=== PATIENT | male | born 1940 | race Caucasian/White ===

== ENCOUNTER 2020-01-03 14:54 | Inpatient (IN) | payer MEDICARE ==
--- NOTE | 2020-01-03 15:48 | CR ---
Abdomen 2V AP Flat Upright CLINICAL HISTORY: Abdominal pain FINDINGS: No free air is seen. There is moderate diffuse small bowel distention with scattered air-fluid levels. There is some gas and feces in the colon. Patient has had previous left abdominal surgery. IMPRESSION: Significant small bowel distention with moderate colonic distention. This could represent ileus but early or partial small bowel obstruction is not excluded
[2020-01-03] MEDS ORDERED: Ondansetron 4 MG/2 ML SDV IV PRN (16:03)
[2020-01-03] MEDS ORDERED: diphenhydrAMINE 50 MG/ML SDV IVPUSH PRN (16:17)
[2020-01-03] MEDS ORDERED: diphenhydrAMINE 25 MG Cap PO PRN (16:17)
[2020-01-03] MEDS ORDERED: Naloxone 0.4 MG/ML SDV IVPUSH PRN (16:17)
[2020-01-03] MEDS ORDERED: Sodium Chloride 0.9% 10 ML Syringe FLUSH PRN (16:21)
[2020-01-03] MEDS ORDERED: Iopamidol 612 MG/ML 100 ML Bottle IV SCH (16:30)
[2020-01-03] MEDS ORDERED: HYDROmorphone/Normal Saline 15 MG/30 ML PCA IV PRN (16:30)
[2020-01-03] MEDS ORDERED: Sodium Chloride 0.9% 80 ML IV SCH (16:30)
--- NOTE | 2020-01-03 16:52 | PCM.HP.2 ---
H&P History of Present Illness - General Date of Service: 01/03/20 Admit Problem/Dx: Admission Diagnosis/Problem Admission Diagnosis/Problem Ileus Source of Information: Patient History Limitations: Reports: No Limitations - History of Present Illness Initial Comments - Free Text/Narative: Uche is an 80-year-old male who began having bowel yesterday after he had eaten [place] food. The pain is 10/10 and cramping in nature and he is nauseated. He does have a history of partial bowel resection in the past and has had significant diarrhea ever since. His stool is normal color without blood. He is unable to eat at the present time. Duration of Symptoms: Reports: Colic, Constant, Getting Worse Severity: Severe Improves with: Reports: None - Related Data Allergies/Adverse Reactions: Allergies Allergy/AdvReac Type Severity Reaction Status Date / Time No Known Allergies Allergy Verified 06/27/16 07:57 Home Medications: Home Meds Triamcinolone Acetonide [Kenalog 0.1% Oint] 0 gm TOP ASDIRECTED 09/07/13 [History] Calcium Carbonate [Tums] 1 tab.chew PO ASDIRECTED PRN 06/27/16 [History] Acetaminophen/oxyCODONE [Percocet 325-5 MG] 1 - 2 tab PO Q4H PRN #50 tablet 07/02/16 [Rx] Ibuprofen [IJD: Ibuprofen] 600 mg PO QID #40 tablet 07/02/16 [Rx] Pantoprazole [ProTONIX] 40 mg PO BEDTIME #30 tab.cr 07/02/16 [Rx] Tamsulosin [Flomax] 0.4 mg PO BEDTIME #30 cap.er 07/02/16 [Rx] Past Medical History HEENT History: Reports: Impaired Vision Gastrointestinal History: Reports: GERD, Other (See Below) Other Gastrointestinal History: frequent bms Genitourinary History: Reports: Prostate Disorder, Other (See Below) Other Genitourinary History: prostate ca Oncologic (Cancer) History: Reports: Prostate Dermatologic History: Reports: Other (See Below) Other Dermatologic History: skin grafts bilat arms and right shoulder. - Infectious Disease History Infectious Disease History: Reports: Chicken Pox, Measles, Mumps - Past Surgical History GI Surgical History: Reports: Colonoscopy, Hernia, Inguinal Male Surgical History: Reports: Other (See Below) Dermatological Surgical History: Reports: Skin Graft Social & Family History - Caffeine Use Caffeine Use: Reports: Soda H&P Review of Systems - Review of Systems: Review Of Systems: See Below General: Reports: Weakness HEENT: Reports: No Symptoms Pulmonary: Reports: No Symptoms Cardiovascular: Reports: No Symptoms Gastrointestinal: Reports: Abdominal Pain, Decreased Appetite, Nausea, Vomiting Genitourinary: Reports: No Symptoms Musculoskeletal: Reports: No Symptoms Skin: Reports: No Symptoms Psychiatric: Reports: No Symptoms Neurological: Reports: Weakness Hematologic/Lymphatic: Reports: No Symptoms Immunologic: Reports: No Symptoms Exam - Exam Exam: See Below - Exam General: Alert, Oriented, Moderate Distress HEENT: PERRLA, Hearing Intact, Mucosa Moist & [place], Nares Patent, Normal Nasal Septum, Posterior Pharynx Clear, Conjunctiva Clear, EOMI, EACs Clear, TMs Clear Neck: Supple, Trachea Midline, 2 Lungs: Clear to Auscultation, Normal Respiratory Effort Cardiovascular: Regular Rate, Regular Rhythm GI/Abdominal Exam: Guarding, Tender, Abnormal Bowel Sounds Back Exam: Normal Inspection Extremities: Normal Inspection, No Pedal Edema Peripheral Pulses: 1+: Carotid (L), Carotid (R), Radial (L), Radial (R) Skin: Warm, Dry, Intact Neurological: Cranial Nerves Intact, Reflexes Equal Bilateral Neuro Extensive - Mental Status: Alert, Oriented x3, Normal Cognition Neuro Extensive - Motor, Sensory, Reflexes: CN II-XII Intact, Abnormal Gait DTR: 1+: Bicep (L), Bicep (R) Psychiatric: Alert - Patient Data Lab Results Last 24 hrs: Laboratory Results - last 24 hr 01/03/20 Range/Units 14:59 WBC 12.1 H (4.5-11.0) K/uL RBC 4.73 (4.30-5.90) M/uL Hgb 14.9 D (12.0-15.0) g/dL Hct 43.9 (40.0-54.0) % MCV 93 (80-98) fL MCH 32 H (27-31) pg MCHC 34 (32-36) % Plt Count 320 (150-400) K/uL Neut % (Auto) 88 H (36-66) % Lymph % (Auto) 7 L (24-44) % [place] % (Auto) 5 (2-6) % Eos % (Auto) 0 L (2-4) % Baso % (Auto) 0 (0-1) % Result Diagrams: 01/03/20 14:59 Sepsis Event Note - Focused Exam Date Exam was Performed: 01/03/20 Time Exam was Performed: 16:47 Problem List Initiated/Reviewed/Updated: Yes Orders Last 24hrs: Active Orders 24 hr Category Date Time Status Patient Status [ADT] Routine ADT 01/03/20 16:03 Active Ambulate [RC] QID Care 01/03/20 16:03 Active Communication Order [RC] Per Unit Routine Care 01/03/20 16:19 Active Height and Weight [RC] UPON Care 01/03/20 16:03 Active Intake and Output [RC] QSHIFT Care 01/03/20 16:07 Active Notify Provider Consults [RC] ASDIRECTED Care 01/03/20 16:14 Active Oxygen Therapy [RC] PRN Care 01/03/20 16:03 Active ASSOCIATE PROFESSOR OF BIOSTATISTICS Record [RC] Q4H Care 01/03/20 16:19 Active Peripheral IV Care [RC] . DIRECTED Care 01/03/20 16:14 Active Up ad Laura [RC] ASDIRECTED Care 01/03/20 16:03 Active Up to Chair [RC] QID Care 01/03/20 16:03 Active VTE/DVT Education [RC] Per Unit Routine Care 01/03/20 16:03 Active Vital Signs [RC] PER UNIT ROUTINE Care 01/03/20 16:19 Active Vital Signs [RC] Q4H Care 01/03/20 16:03 Active Consult to Physician [CONS] Routine Cons 01/03/20 16:03 Ordered Nothing per Oral Now Diet [DIET] Diet 01/03/20 Dinner Active Abdomen Pelvis w Cont [CT] Routine Exams 01/03/20 15:47 Ordered Chest 2V [CR] Routine Exams 01/03/20 16:22 Ordered CBC WITH AUTO DIFF [HEME] DAILY Lab 01/04/20 05:00 Ordered CBC WITH AUTO DIFF [HEME] DAILY Lab 01/05/20 05:00 Ordered CBC WITH AUTO DIFF [HEME] DAILY Lab 01/06/20 05:00 Ordered CBC WITH AUTO DIFF [HEME] DAILY Lab 01/07/20 05:00 Ordered CBC WITH AUTO DIFF [HEME] DAILY Lab 01/08/20 05:00 Ordered CBC WITH AUTO DIFF [HEME] DAILY Lab 01/09/20 05:00 Ordered COMPREHENSIVE METABOLIC PN,CMP [CHEM] DAILY Lab 01/04/20 05:00 Ordered COMPREHENSIVE METABOLIC PN,CMP [CHEM] DAILY Lab 01/05/20 05:00 Ordered COMPREHENSIVE METABOLIC PN,CMP [CHEM] DAILY Lab 01/06/20 05:00 Ordered COMPREHENSIVE METABOLIC PN,CMP [CHEM] DAILY Lab 01/07/20 05:00 Ordered COMPREHENSIVE METABOLIC PN,CMP [CHEM] DAILY Lab 01/08/20 05:00 Ordered COMPREHENSIVE METABOLIC PN,CMP [CHEM] DAILY Lab 01/09/20 05:00 Ordered COMPREHENSIVE METABOLIC PN,CMP [CHEM] Routine Lab 01/03/20 14:59 Received CULTURE STOOL + SHIGATOX [RM] Routine Lab 01/03/20 14:59 Received Dextrose 5%-0.9% NaCl [Dextrose 5%-Normal Saline] 1,000 Med 01/03/20 16:45 Active ml IV ASDIRECTED HYDROmorphone/Normal Saline [Dilaudid ASSOCIATE PROFESSOR OF BIOSTATISTICS 15 MG in NS Med 01/03/20 16:30 Active 30 ML] 0 mg IV ASDIRECTED PRN Naloxone [Narcan] Med 01/03/20 16:17 Active 0.1 mg IVPUSH Q3M PRN Ondansetron [Zofran] Med 01/03/20 16:03 Active 4 mg IV Q4H PRN Sodium Chloride 0.9% [Saline Flush] Med 01/03/20 16:03 Active 10 ml FLUSH ASDIRECTED PRN diphenhydrAMINE [Benadryl] Med 01/03/20 16:17 Active 25 mg IVPUSH Q6H PRN diphenhydrAMINE [Benadryl] Med 01/03/20 16:17 Active 25 mg PO Q6H PRN Nasogastric Orogastric Tube Insertion [OM.PC] Urgent Oth 01/03/20 16:08 Ordered Peripheral IV Insertion Adult [OM.PC] Routine Oth 01/03/20 16:03 Ordered Pulse Oximetry Continuous Monitoring [OM.PC] Routine Oth 01/03/20 16:19 Ordered Resuscitation Status Routine Resus Stat 01/03/20 16:03 Ordered Medication Orders Diphenhydramine HCl (Benadryl) 25 mg IVPUSH Q6H PRN PRN Reason: Itching Diphenhydramine HCl (Benadryl) 25 mg PO Q6H PRN PRN Reason: Itching Hydromorphone HCl (Dilaudid Carbide Tool Die Maker 15 Mg In Ns 30 Ml) 0 mg IV ASDIRECTED PRN; Protocol PRN Reason: PAIN Dextrose/Sodium Chloride (Dextrose 5%-Normal Saline) 1,000 mls @ 125 mls/hr IV ASDIRECTED COLBY Naloxone HCl (Narcan) 0.1 mg IVPUSH Q3M PRN PRN Reason: Respiratory Depression Ondansetron HCl (Zofran) 4 mg IV Q4H PRN PRN Reason: Nausea/Vomiting Sodium Chloride (Saline Flush) 10 ml FLUSH ASDIRECTED PRN PRN Reason: Keep Vein Open Assessment/Plan Comment:: Assessment/Plan: #1. Small bowel obstruction. A flat plate of the abdomen showed air-fluid levels. CAT scan is pending. I recommend the hospital and will consult surgery. The white count is slightly elevated and CMP is pending. A chest x-ray is pending. #2. History of diarrhea: Cultures are pending to evaluate diarrhea. #3. Prostate cancer. Treatment followed by an oncologist - Mortality Measure Prognosis:: Good
[2020-01-03] MEDS: Sodium Chloride 0.9% 10 ML Syringe FLUSH PRN (16:58)
[2020-01-03] MEDS: Dextrose 5%-0.9% NaCl 1,000 ML IV SCH (17:18)
--- NOTE | 2020-01-03 17:40 | CRLCT ---
INDICATION: Abdominal pain TECHNIQUE: CT abdomen and pelvis acquired with 100 cc Isovue-300 IV contrast. COMPARISON: KUB from earlier today FINDINGS: Lower chest: Small hiatal hernia. Liver: Simple cyst in the liver. Spleen: Unremarkable. Pancreas: Unremarkable. Gallbladder and bile ducts: Unremarkable. Adrenal glands: Unremarkable. Kidneys: Hypodense lesion on the right kidney measuring 38 Hounsfield units in density. GI tract: Multiple fluid filled loops of dilated small bowel and colon. Transition point is seen in the mid abdomen on image 38 series 3. Vascular structures: Mild atherosclerotic disease. Lymph nodes: Unremarkable. Miscellaneous: Unremarkable. No free air or significant free fluid. Pelvic Organs: Unremarkable. Bones: Severe degenerative changes in the right hip joint. IMPRESSION: Bowel obstruction appears to involve both the small and large bowel with a transition point in the mid abdomen on image 38 series 3. No pneumatosis or extraluminal air. Indeterminate lesion on the right kidney. Recommend renal CT for further evaluation. Small hiatal hernia. 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 Please note that all CT scans at this facility use dose modulation, iterative reconstruction, and/or weight-based dosing when appropriate to reduce radiation dose to as low as reasonably achievable. Dictated by Minna Torres MD @ Jan 03 2020 5:29PM Signed by Dr. Minna Torres @ Jan 03 2020 5:38PM
[2020-01-04] MEDS: Dextrose 5%-0.9% NaCl 1,000 ML IV SCH ×3 (01:23→17:18)
--- NOTE | 2020-01-04 09:12 | CRLCR ---
INDICATION: Pain. COMPARISON: Abdominal radiograph and CT of the abdomen and pelvis 01/03/2020. TECHNIQUE: Two view abdomen. FINDINGS: Interval placement of an enteric tube with tip and side hole in the stomach. There are persistently dilated loops of bowel with air-fluid levels compatible with obstruction. Enteric contrast within loops of bowel in the pelvis. No free air on upright view. No pneumatosis. Surgical sutures in the left abdomen. Surgical greg in the pelvis. Degenerative changes of the spine, hips, and sacroiliac joints. The lung bases are clear. IMPRESSION: 1. Interval placement of an enteric tube with tip and side hole in the stomach. 2. Persistent dilation of bowel loops with air-fluid levels compatible with obstruction. Dictated by Shannan Khoury MD @ Jan 04 2020 9:05AM Signed by Dr. Shannan Khoury @ Jan 04 2020 9:10AM
[2020-01-04] MEDS ORDERED: Lidocaine 2% Jelly 10 ML Urojet MUCMEM ONE (12:40)
--- NOTE | 2020-01-04 19:26 | PCM.PN ---
- General Info Date of Service: 01/04/20 Subjective Update: Uche continues to have abd pain and passing no gas. Pain controlled by LIGHT FIXTURE SERVICER Dilaudid. Functional Status: Reports: Pain Controlled - Review of Systems General: Reports: Weakness HEENT: Reports: No Symptoms Pulmonary: Reports: No Symptoms Cardiovascular: Reports: No Symptoms Gastrointestinal: Reports: Abdominal Pain Genitourinary: Reports: No Symptoms Musculoskeletal: Reports: No Symptoms Skin: Reports: No Symptoms Neurological: Reports: No Symptoms Psychiatric: Reports: No Symptoms - Patient Data Vitals - Most Recent: Last Vital Signs Temp 96.7 F L 01/04/20 14:28 Pulse 50 L 01/04/20 14:28 Resp 18 01/04/20 14:28 BP 105/62 01/04/20 14:28 Pulse Ox 92 L 01/04/20 14:28 Weight - Most Recent: 135 lb 0.001 oz I&O - Last 24 Hours: Intake & Output 01/04/20 01/04/20 01/04/20 06:59 14:59 22:59 Intake Total 1600 1329 Output Total 200 250 570 Balance 1400 -250 759 Lab Results Last 24 Hours: Laboratory Results - last 24 hr 01/04/20 01/04/20 Range/Units 05:44 05:44 WBC 13.9 H (4.5-11.0) K/uL RBC 4.26 L (4.30-5.90) M/uL Hgb 13.4 (12.0-15.0) g/dL Hct 40.3 (40.0-54.0) % MCV 95 (80-98) fL MCH 32 H (27-31) pg MCHC 33 (32-36) % Plt Count 258 (150-400) K/uL Neut % (Auto) 86 H (36-66) % Lymph % (Auto) 6 L (24-44) % [place] % (Auto) 9 H (2-6) % Eos % (Auto) 0 L (2-4) % Baso % (Auto) 0 (0-1) % Sodium 140 (140-148) mmol/L Potassium 4.2 (3.6-5.2) mmol/L Chloride 106 (100-108) mmol/L Carbon Dioxide 26 (21-32) mmol/L Anion Gap 7.8 (5.0-14.0) mmol/L BUN 12 (7-18) mg/dL Creatinine 0.9 (0.8-1.3) mg/dL Est Cr Clr Drug Dosing 54.81 mL/min Estimated GFR (MDRD) > 60 (>60) Glucose 174 H (74-106) mg/dL Calcium 8.8 (8.5-10.1) mg/dL Total Bilirubin 0.5 (0.2-1.0) mg/dL AST 21 (15-37) U/L ALT 21 (12-78) U/L Alkaline Phosphatase 63 (46-116) U/L Total Protein 6.5 (6.4-8.2) g/dL Albumin 3.4 (3.4-5.0) g/dL Globulin 3.1 (2.3-3.5) g/dL Albumin/Globulin Ratio 1.1 L (1.2-2.2) Med Orders - Current: Current Medications Diphenhydramine HCl (Benadryl) 25 mg IVPUSH Q6H PRN PRN Reason: Itching Diphenhydramine HCl (Benadryl) 25 mg PO Q6H PRN PRN Reason: Itching Hydromorphone HCl (Dilaudid Central Supply Assistant 15 Mg In Ns 30 Ml) 0 mg IV ASDIRECTED PRN; Protocol PRN Reason: PAIN Last Admin: 01/03/20 17:32 Dose: 15 mg Documented by: Dextrose/Sodium Chloride (Dextrose 5%-Normal Saline) 1,000 mls @ 125 mls/hr IV ASDIRECTED COLBY Last Admin: 01/04/20 17:18 Dose: 125 mls/hr Documented by: Naloxone HCl (Narcan) 0.1 mg IVPUSH Q3M PRN PRN Reason: Respiratory Depression Ondansetron HCl (Zofran) 4 mg IV Q4H PRN PRN Reason: Nausea/Vomiting Sodium Chloride (Saline Flush) 10 ml FLUSH ASDIRECTED PRN PRN Reason: Keep Vein Open Last Admin: 01/03/20 16:58 Dose: 10 ml Documented by: Discontinued Medications Sodium Chloride (Normal Saline) 80 mls @ 3 mls/sec IV ASDIRECTED COLBY Stop: 01/03/20 16:31 Last Admin: 01/03/20 16:58 Dose: 3 mls/sec Documented by: Iopamidol (Isovue-300 (61%)) 100 ml IV . DIRECTED COLBY Stop: 01/03/20 16:31 Last Admin: 01/03/20 16:58 Dose: 100 ml Documented by: Lidocaine HCl (Xylocaine 2% Jelly) 10 ml MUCMEM ONETIME ONE Stop: 01/04/20 12:41 Last Admin: 01/04/20 13:15 Dose: 10 ml Documented by: - Exam General: Alert, Oriented HEENT: Pupils Equal, Pupils Reactive, EOMI, Mucous Membr. Moist/[place] Neck: Supple Lungs: Clear to Auscultation, Normal Respiratory Effort Cardiovascular: Regular Rate GI/Abdominal Exam: Guarding, Tender, Abnormal Bowel Sounds Back Exam: Normal Inspection, Full Range of Motion Extremities: Normal Inspection, Normal Range of Motion, Non-Tender, No Pedal Edema, Normal Capillary Refill Peripheral Pulses: 1+: Radial (L), Radial (R) Skin: Warm, Dry, Intact Neurological: No New Focal Deficit Sepsis Event Note - Evaluation Sepsis Screening Result: No Definite Risk - Focused Exam Vital Signs: Vital Signs Temp Pulse Resp BP Pulse Ox 01/04/20 14:28 96.7 F L 50 L 18 105/62 92 L 01/04/20 13:09 90 L 01/04/20 10:36 97.7 F 54 L 18 94/69 95 - Problem List Review Problem List Initiated/Reviewed/Updated: Yes - My Orders Last 24 Hours: My Active Orders 01/03/20 22:33 Sequential Compression Device [OM.PC] Routine 01/04/20 12:39 Urinary Catheter Assessment [RC] ASDIRECTED 01/04/20 12:45 Carr Catheter Insertion [Insert Urinary Catheter] [OM.PC] Q24H 01/05/20 05:00 CBC WITH AUTO DIFF [HEME] DAILY COMPREHENSIVE METABOLIC PN,CMP [CHEM] DAILY 01/06/20 05:00 CBC WITH AUTO DIFF [HEME] DAILY COMPREHENSIVE METABOLIC PN,CMP [CHEM] DAILY 01/07/20 05:00 CBC WITH AUTO DIFF [HEME] DAILY COMPREHENSIVE METABOLIC PN,CMP [CHEM] DAILY 01/08/20 05:00 CBC WITH AUTO DIFF [HEME] DAILY COMPREHENSIVE METABOLIC PN,CMP [CHEM] DAILY 01/09/20 05:00 CBC WITH AUTO DIFF [HEME] DAILY COMPREHENSIVE METABOLIC PN,CMP [CHEM] DAILY - Plan Plan:: Assessment/Plan: #1. Small bowel obstruction. A flat plate of the abdomen and the CT showed air-fluid levels with abstruction. The white count is elevated lightly elevated to 13.9. A chest x-ray shows no acute pathology. Seen by surgery and cont. to watch to see if the obstruction relieves. x-rays pending in the morning. #2. History of diarrhea: Cultures are pending to evaluate diarrhea. #3. Prostate cancer. Treatment followed by an oncologist
--- NOTE | 2020-01-05 08:09 | PCM.PN ---
- General Info Date of Service: 01/05/20 Functional Status: Reports: Pain Controlled - Review of Systems General: Reports: Weakness HEENT: Reports: No Symptoms Pulmonary: Reports: No Symptoms Cardiovascular: Reports: No Symptoms Gastrointestinal: Reports: Abdominal Pain Genitourinary: Reports: No Symptoms Musculoskeletal: Reports: No Symptoms Skin: Reports: No Symptoms Neurological: Reports: No Symptoms Psychiatric: Reports: No Symptoms - Patient Data Vitals - Most Recent: Last Vital Signs Temp 98.3 F 01/05/20 07:00 Pulse 57 L 01/05/20 07:00 Resp 18 01/05/20 07:00 BP 102/64 01/05/20 07:00 Pulse Ox 95 01/05/20 07:21 Weight - Most Recent: 135 lb 0.001 oz I&O - Last 24 Hours: Intake & Output 01/04/20 01/05/20 01/05/20 22:59 06:59 14:59 Intake Total 1329 Output Total 570 525 Balance 759 -525 Lab Results Last 24 Hours: Laboratory Results - last 24 hr 01/05/20 01/05/20 Range/Units 04:30 04:30 WBC 9.3 (4.5-11.0) K/uL RBC 3.96 L (4.30-5.90) M/uL Hgb 12.4 (12.0-15.0) g/dL Hct 38.3 L (40.0-54.0) % MCV 97 (80-98) fL MCH 31 (27-31) pg MCHC 32 (32-36) % Plt Count 207 (150-400) K/uL Neut % (Auto) 80 H (36-66) % Lymph % (Auto) 7 L (24-44) % [place] % (Auto) 12 H (2-6) % Eos % (Auto) 1 L (2-4) % Baso % (Auto) 0 (0-1) % Sodium 143 (140-148) mmol/L Potassium 3.7 (3.6-5.2) mmol/L Chloride 108 (100-108) mmol/L Carbon Dioxide 28 (21-32) mmol/L Anion Gap 6.7 (5.0-14.0) mmol/L BUN 9 (7-18) mg/dL Creatinine 0.8 (0.8-1.3) mg/dL Est Cr Clr Drug Dosing 61.66 mL/min Estimated GFR (MDRD) > 60 (>60) Glucose 132 H (74-106) mg/dL Calcium 8.2 L (8.5-10.1) mg/dL Total Bilirubin 0.6 (0.2-1.0) mg/dL AST 18 (15-37) U/L ALT 15 (12-78) U/L Alkaline Phosphatase 50 (46-116) U/L Total Protein 5.9 L (6.4-8.2) g/dL Albumin 2.9 L (3.4-5.0) g/dL Globulin 3.0 (2.3-3.5) g/dL Albumin/Globulin Ratio 1.0 L (1.2-2.2) Med Orders - Current: Current Medications Diphenhydramine HCl (Benadryl) 25 mg IVPUSH Q6H PRN PRN Reason: Itching Diphenhydramine HCl (Benadryl) 25 mg PO Q6H PRN PRN Reason: Itching Hydromorphone HCl (Dilaudid Management And Budget Analyst 15 Mg In Ns 30 Ml) 0 mg IV ASDIRECTED PRN; Pro tocol PRN Reason: PAIN Last Admin: 01/03/20 17:32 Dose: 15 mg Documented by: Dextrose/Sodium Chloride (Dextrose 5%-Normal Saline) 1,000 mls @ 125 mls/hr IV ASDIRECTED COLBY Last Admin: 01/04/20 17:18 Dose: 125 mls/hr Documented by: Lactulose (Chronulac) 30 gm NGTUBE BID COLBY Naloxone HCl (Narcan) 0.1 mg IVPUSH Q3M PRN PRN Reason: Respiratory Depression Ondansetron HCl (Zofran) 4 mg IV Q4H PRN PRN Reason: Nausea/Vomiting Sodium Chloride (Saline Flush) 10 ml FLUSH ASDIRECTED PRN PRN Reason: Keep Vein Open Last Admin: 01/03/20 16:58 Dose: 10 ml Documented by: Discontinued Medications Sodium Chloride (Normal Saline) 80 mls @ 3 mls/sec IV ASDIRECTED COLBY Stop: 01/03/20 16:31 Last Admin: 01/03/20 16:58 Dose: 3 mls/sec Documented by: Iopamidol (Isovue-300 (61%)) 100 ml IV . DIRECTED COLBY Stop: 01/03/20 16:31 Last Admin: 01/03/20 16:58 Dose: 100 ml Documented by: Lidocaine HCl (Xylocaine 2% Jelly) 10 ml MUCMEM ONETIME ONE Stop: 01/04/20 12:41 Last Admin: 01/04/20 13:15 Dose: 10 ml Documented by: - Exam General: Alert, Oriented HEENT: Pupils Equal, Pupils Reactive, EOMI, Mucous Membr. Moist/[place] Neck: Supple Lungs: Clear to Auscultation, Normal Respiratory Effort Cardiovascular: Regular Rate, Regular Rhythm GI/Abdominal Exam: Tender, Abnormal Bowel Sounds Extremities: Normal Inspection, Normal Range of Motion, Non-Tender, No Pedal Edema, Normal Capillary Refill Peripheral Pulses: 1+: Brachial (L), Brachial (R) Skin: Warm, Dry, Intact Neurological: No New Focal Deficit Psy/Mental Status: Alert, Normal Affect, Normal Mood Sepsis Event Note - Evaluation Sepsis Screening Result: No Definite Risk - Focused Exam Vital Signs: Vital Signs Temp Pulse Resp BP Pulse Ox 01/05/20 07:21 95 01/05/20 07:00 98.3 F 57 L 18 102/64 95 01/05/20 04:00 98.3 F 60 16 102/57 L 96 01/05/20 01:12 93 L 01/04/20 22:39 97.6 F 58 L 16 107/59 L 97 01/04/20 20:18 97.1 F 54 L 16 108/54 L 98 - Problem List Review Problem List Initiated/Reviewed/Updated: Yes - My Orders Last 24 Hours: My Active Orders 01/04/20 12:39 Urinary Catheter Assessment [RC] ASDIRECTED 01/04/20 12:45 Carr Catheter Insertion [Insert Urinary Catheter] [OM.PC] Q24H 01/06/20 05:00 CBC WITH AUTO DIFF [HEME] DAILY COMPREHENSIVE METABOLIC PN,CMP [CHEM] DAILY 01/07/20 05:00 CBC WITH AUTO DIFF [HEME] DAILY COMPREHENSIVE METABOLIC PN,CMP [CHEM] DAILY 01/08/20 05:00 CBC WITH AUTO DIFF [HEME] DAILY COMPREHENSIVE METABOLIC PN,CMP [CHEM] DAILY 01/09/20 05:00 CBC WITH AUTO DIFF [HEME] DAILY COMPREHENSIVE METABOLIC PN,CMP [CHEM] DAILY - Plan Plan:: Assessment/Plan: #1. Small bowel obstruction. A flat plate of the abdomen showed air-fluid levels without significant change from yesterday. The white count is normal. There is no improvement. He may need surgery to explore the reason for the obstruction. #2. History of diarrhea: Cultures are pending to evaluate diarrhea. #3. Prostate cancer. Treatment followed by an oncologist
[2020-01-05] MEDS: Lactulose Soln 10 GM/15 ML 15 ML UD Cup NGTUBE SCH ×2 (09:27→21:04)
[2020-01-05] MEDS: Dextrose 5%-0.9% NaCl 1,000 ML IV SCH ×2 (11:01→18:16)
--- NOTE | 2020-01-05 11:37 | CRLCR ---
INDICATION: Abdominal pain. COMPARISON: 01/04/2020. TECHNIQUE: Abdomen, supine and upright views, 5 images. FINDINGS: Enteric tube tip in the stomach, unchanged in position. Persistently dilated loops of bowel with fluid levels, likely due to obstruction with perhaps slightly decreased dilatation. No pneumatosis or pneumoperitoneum. Imaged lung bases are unremarkable. Degenerative changes in the imaged osseous structures most pronounced in the right hip. Surgical greg in the pelvis. IMPRESSION: Persistent dilated bowel loops with fluid levels, likely due to obstruction, with perhaps slightly decreased dilatation. Enteric tube tip unchanged in position. Dictated by Phil Scott MD @ Jan 05 2020 11:29AM Signed by Dr. Phil Scott @ Jan 05 2020 11:35AM
[2020-01-05] MEDS: HYDROmorphone 0.5 MG/0.5 ML Syringe IVPUSH PRN (17:26)
[2020-01-06] MEDS: Dextrose 5%-0.9% NaCl 1,000 ML IV SCH (02:24)
[2020-01-06] MEDS: Lactulose Soln 10 GM/15 ML 15 ML UD Cup NGTUBE SCH ×2 (08:02→20:59)
--- NOTE | 2020-01-06 08:31 | PCM.PN ---
- General Info Date of Service: 01/06/20 Functional Status: Reports: Pain Controlled - Review of Systems General: Reports: Weakness HEENT: Reports: No Symptoms Pulmonary: Reports: No Symptoms Cardiovascular: Reports: No Symptoms Gastrointestinal: Reports: Abdominal Pain Genitourinary: Reports: No Symptoms Musculoskeletal: Reports: No Symptoms Skin: Reports: No Symptoms Neurological: Reports: No Symptoms Psychiatric: Reports: No Symptoms - Patient Data Vitals - Most Recent: Last Vital Signs Temp 98.2 F 01/06/20 07:05 Pulse 64 01/06/20 07:05 Resp 15 01/06/20 07:05 BP 118/69 01/06/20 07:05 Pulse Ox 95 01/06/20 07:05 Weight - Most Recent: 135 lb 0.001 oz I&O - Last 24 Hours: Intake & Output 01/05/20 01/06/20 01/06/20 22:59 06:59 14:59 Intake Total 1566 1200 40 Output Total 750 500 Balance 816 700 40 Lab Results Last 24 Hours: Laboratory Results - last 24 hr 01/06/20 01/06/20 Range/Units 05:07 05:07 WBC 7.7 (4.5-11.0) K/uL RBC 3.75 L (4.30-5.90) M/uL Hgb 11.8 L (12.0-15.0) g/dL Hct 36.2 L (40.0-54.0) % MCV 97 (80-98) fL MCH 32 H (27-31) pg MCHC 33 (32-36) % Plt Count 180 (150-400) K/uL Neut % (Auto) 79 H (36-66) % Lymph % (Auto) 7 L (24-44) % [place] % (Auto) 13 H (2-6) % Eos % (Auto) 0 L (2-4) % Baso % (Auto) 0 (0-1) % Sodium 143 (140-148) mmol/L Potassium 3.1 L (3.6-5.2) mmol/L Chloride 109 H (100-108) mmol/L Carbon Dioxide 29 (21-32) mmol/L Anion Gap 8.1 (5.0-14.0) mmol/L BUN 8 (7-18) mg/dL Creatinine 0.7 L (0.8-1.3) mg/dL Est Cr Clr Drug Dosing 70.47 mL/min Estimated GFR (MDRD) > 60 (>60) Glucose 144 H (74-106) mg/dL Calcium 8.1 L (8.5-10.1) mg/dL Total Bilirubin 0.6 (0.2-1.0) mg/dL AST 19 (15-37) U/L ALT 16 (12-78) U/L Alkaline Phosphatase 53 (46-116) U/L Total Protein 5.7 L (6.4-8.2) g/dL Albumin 2.5 L (3.4-5.0) g/dL Globulin 3.2 (2.3-3.5) g/dL Albumin/Globulin Ratio 0.8 L (1.2-2.2) Med Orders - Current: Current Medications Diphenhydramine HCl (Benadryl) 25 mg IVPUSH Q6H PRN PRN Reason: Itching Diphenhydramine HCl (Benadryl) 25 mg PO Q6H PRN PRN Reason: Itching Hydromorphone HCl (Dilaudid) 0.5 mg IVPUSH Q2H PRN PRN Reason: Pain Last Admin: 01/05/20 17:26 Dose: 0.5 mg Documented by: Dextrose/Sodium Chloride (Dextrose 5%-Normal Saline) 1,000 mls @ 125 mls/hr IV ASDIRECTED [facility] Last Admin: 01/06/20 02:24 Dose: 125 mls/hr Documented by: Lactulose (Chronulac) 30 gm NGTUBE BID [facility] Last Admin: 01/06/20 08:02 Dose: 30 gm Documented by: Naloxone HCl (Narcan) 0.1 mg IVPUSH Q3M PRN PRN Reason: Respiratory Depression Ondansetron HCl (Zofran) 4 mg IV Q4H PRN PRN Reason: Nausea/Vomiting Sodium Chloride (Saline Flush) 10 ml FLUSH ASDIRECTED PRN PRN Reason: Keep Vein Open Last Admin: 01/03/20 16:58 Dose: 10 ml Documented by: Discontinued Medications Hydromorphone HCl (Dilaudid [employer] 15 Mg In Ns 30 Ml) 0 mg IV ASDIRECTED PRN; Protocol PRN Reason: PAIN Last Admin: 01/03/20 17:32 Dose: 15 mg Documented by: Sodium Chloride (Normal Saline) 80 mls @ 3 mls/sec IV ASDIRECTED [facility] Stop: 01/03/20 16:31 Last Admin: 01/03/20 16:58 Dose: 3 mls/sec Documented by: Iopamidol (Isovue-300 (61%)) 100 ml IV . DIRECTED COLBY Stop: 01/03/20 16:31 Last Admin: 01/03/20 16:58 Dose: 100 ml Documented by: Lidocaine HCl (Xylocaine 2% Jelly) 10 ml MUCMEM ONETIME ONE Stop: 01/04/20 12:41 Last Admin: 01/04/20 13:15 Dose: 10 ml Documented by: - Exam General: Alert, Oriented HEENT: Pupils Equal, Pupils Reactive, EOMI, Mucous Membr. Moist/[place] Neck: Supple Lungs: Clear to Auscultation, Normal Respiratory Effort Cardiovascular: Regular Rate, Regular Rhythm GI/Abdominal Exam: Abnormal Bowel Sounds Extremities: Normal Inspection, Normal Range of Motion, Non-Tender, No Pedal Edema, Normal Capillary Refill Peripheral Pulses: 1+: Radial (L), Radial (R) Psy/Mental Status: Alert, Normal Affect, Normal Mood Sepsis Event Note - Evaluation Sepsis Screening Result: No Definite Risk - Focused Exam Vital Signs: Vital Signs Temp Pulse Resp BP BP Pulse Ox 01/06/20 07:05 98.2 F 64 15 118/69 95 01/06/20 02:46 98.2 F 70 16 129/78 95 01/05/20 22:26 99.6 F 77 15 125/63 97 - Problem List Review Problem List Initiated/Reviewed/Updated: Yes - My Orders Last 24 Hours: My Active Orders 01/05/20 11:55 HYDROmorphone [Dilaudid] 0.5 mg IVPUSH Q2H PRN 01/07/20 05:00 CBC WITH AUTO DIFF [HEME] DAILY COMPREHENSIVE METABOLIC PN,CMP [CHEM] DAILY 01/08/20 05:00 CBC WITH AUTO DIFF [HEME] DAILY COMPREHENSIVE METABOLIC PN,CMP [CHEM] DAILY 01/09/20 05:00 CBC WITH AUTO DIFF [HEME] DAILY COMPREHENSIVE METABOLIC PN,CMP [CHEM] DAILY - Plan Plan:: Assessment/Plan: #1. Small bowel obstruction. A flat plate of the abdomen showed air-fluid levels without significant change from yesterday. The white count is normal. There is no improvement. He may need surgery to explore the reason for the obstruction. DI will speak with the surgeon. #2. History of diarrhea: Cultures are pending to evaluate diarrhea. #3. Prostate cancer. Treatment followed by an oncologist #4. Hypokalemia: Will begin K by IV.
[2020-01-06] MEDS ORDERED: Iopamidol 612 MG/ML 30 ML SDV PO ONE (08:56)
[2020-01-06] MEDS ORDERED: Iopamidol 612 MG/ML 50 ML SDV PO ONE (09:06)
--- NOTE | 2020-01-06 09:16 | CR ---
CHEST: 2 view CLINICAL HISTORY:Abdominal pain Findings: The heart size, pulmonary vascularity and hilar structures are normal. No infiltrate effusion or pneumothorax is seen. There is moderate small bowel distention IMPRESSION: No acute cardiopulmonary process Small bowel distention
[2020-01-06] MEDS: HYDROmorphone 0.5 MG/0.5 ML Syringe IVPUSH PRN ×3 (09:27→20:35)
[2020-01-06] MEDS: Dextrose 5%-0.9% NaCl with KCl 1,000 ML IV SCH ×2 (09:33→17:51)
[2020-01-06] MEDS: Ondansetron 4 MG/2 ML SDV IV PRN (09:37)
[2020-01-06] MEDS ORDERED: Sodium Chloride 0.9% 10 ML Syringe FLUSH ONE (10:16)
[2020-01-06] MEDS ORDERED: Iopamidol 612 MG/ML 500 ML Multipack Bottle IV ONE (10:16)
[2020-01-06] MEDS ORDERED: Sodium Chloride 0.9% 71 ML IV SCH (10:30)
--- NOTE | 2020-01-06 14:27 | CT ---
Abdomen Pelvis w Cont CLINICAL HISTORY: Follow-up obstruction COMPARISON: Abdominal series same day. TECHNIQUE: Transverse scans were obtained from the base of the lungs to the pubic symphysis following oral contrast and IV infusion of contrast.Auto dosage reduction and iterative reconstructiontechniques employed. FINDINGS: The lung bases show patchy airspace disease in the right lower lobe which may be some atelectasis or infiltrate. There are small bibasal effusions. The liver contains a 3.1 x 3.3 cm cyst in the right lobe. There is some mild intrahepatic biliary dilatation. This is likely related to previous cholecystectomy. NG tube remains in the stomach The spleen has a normal size shape and density. The pancreas is somewhat atrophic. The adrenal glands appear normal bilaterally there is a persistent low-attenuation lesion on the right kidney density measurement is nonspecific . There is some lower perinephric fluid. There is no stones or hydronephrosis The ureters have a normal course and caliber. The aorta shows atheromatous change without aneurysm. There is no suspicious retroperitoneal adenopathy. IMPRESSION: Moderate diffuse small bowel distention similar or slightly increased when compared to prior study. The right and transverse colon are not definitively identified. There has been previous surgery which may have been partial colectomy. There is a normal caliber sigmoid: This should be correlated with patient's surgical history. Findings may represent persistent the postoperative ileus. The partial obstruction is not excluded. Indeterminate right renal lesion. This may represent a complex cyst. This should be correlated with ultrasound Hepatic cyst Right basal airspace disease may represent atelectasis or minimal infiltrate Small bibasal effusions
[2020-01-07] MEDS: HYDROmorphone 0.5 MG/0.5 ML Syringe IVPUSH PRN ×3 (01:59→05:51)
[2020-01-07] MEDS: Dextrose 5%-0.9% NaCl with KCl 1,000 ML IV SCH ×3 (02:00→19:39)
[2020-01-07] MEDS: Ondansetron 4 MG/2 ML SDV IV PRN (05:58)
[2020-01-07] MEDS ORDERED: Bupivacaine 0.5% 50 ML MDV ONE (07:52)
[2020-01-07] MEDS ORDERED: Bupivacaine 0.5%/EPINEPHrine 1:200,000 50 ML MDV ONE ×2 (07:58→08:24)
[2020-01-07] MEDS ORDERED: Ondansetron 4 MG/2 ML SDV ONE (08:16)
[2020-01-07] MEDS ORDERED: Succinylcholine 200 MG/10 ML MDV ONE (08:16)
[2020-01-07] MEDS ORDERED: Neostigmine Methylsulfate 1 MG/ML 5 ML Syringe ONE (08:16)
[2020-01-07] MEDS ORDERED: Propofol 200 MG/20 ML SDV ONE (08:16)
[2020-01-07] MEDS ORDERED: Dexamethasone 4 MG/ML SDV ONE (08:16)
[2020-01-07] MEDS ORDERED: Rocuronium 50 MG/5 ML Vial ONE (08:16)
[2020-01-07] MEDS ORDERED: Glycopyrrolate 0.2 MG/ML 5 ML MDV ONE (08:16)
[2020-01-07] MEDS ORDERED: fentaNYL 250 MCG/5 ML SDV ONE (08:17)
--- NOTE | 2020-01-07 08:26 | PCM.PN ---
- General Info Date of Service: 01/07/20 Subjective Update: He has increased abdominal pain after food yesterday. - Review of Systems General: Reports: Weakness HEENT: Reports: No Symptoms Pulmonary: Reports: No Symptoms Cardiovascular: Reports: No Symptoms Gastrointestinal: Reports: Abdominal Pain, Nausea Genitourinary: Reports: No Symptoms Musculoskeletal: Reports: No Symptoms Skin: Reports: No Symptoms Neurological: Reports: No Symptoms Psychiatric: Reports: No Symptoms - Patient Data Vitals - Most Recent: Last Vital Signs Temp 97.3 F 01/07/20 02:00 Pulse 63 01/07/20 02:00 Resp 16 01/07/20 02:00 BP 148/66 H 01/07/20 02:00 Pulse Ox 98 01/07/20 02:00 Weight - Most Recent: 135 lb 0.001 oz I&O - Last 24 Hours: Intake & Output 01/06/20 01/07/20 01/07/20 22:59 06:59 14:59 Intake Total 1100 1478 Output Total 500 550 Balance 600 928 Lab Results Last 24 Hours: Laboratory Results - last 24 hr 01/07/20 01/07/20 Range/Units 05:40 05:40 WBC 5.1 (4.5-11.0) K/uL RBC 3.84 L (4.30-5.90) M/uL Hgb 12.0 (12.0-15.0) g/dL Hct 36.7 L (40.0-54.0) % MCV 96 (80-98) fL MCH 31 (27-31) pg MCHC 33 (32-36) % Plt Count 223 (150-400) K/uL Neut % (Auto) 67 H (36-66) % Lymph % (Auto) 13 L (24-44) % [place] % (Auto) 21 H (2-6) % Eos % (Auto) 0 L (2-4) % Baso % (Auto) 0 (0-1) % Sodium 144 (140-148) mmol/L Potassium 3.4 L (3.6-5.2) mmol/L Chloride 110 H (100-108) mmol/L Carbon Dioxide 28 (21-32) mmol/L Anion Gap 9.4 (5.0-14.0) mmol/L BUN 9 (7-18) mg/dL Creatinine 0.8 (0.8-1.3) mg/dL Est Cr Clr Drug Dosing 61.66 mL/min Estimated GFR (MDRD) > 60 (>60) Glucose 149 H (74-106) mg/dL Calcium 8.4 L (8.5-10.1) mg/dL Total Bilirubin 0.5 (0.2-1.0) mg/dL AST 19 (15-37) U/L ALT 16 (12-78) U/L Alkaline Phosphatase 55 (46-116) U/L Total Protein 5.8 L (6.4-8.2) g/dL Albumin 2.5 L (3.4-5.0) g/dL Globulin 3.3 (2.3-3.5) g/dL Albumin/Globulin Ratio 0.8 L (1.2-2.2) Med Orders - Current: Current Medications Ropivacaine 30 ml/Dexamethasone 8 mg/Epinephrine HCl 0.4 mg/ Sodium Chloride 47.6 ml 0 ml NERVRT ASDIRECTED [facility] Diphenhydramine HCl (Benadryl) 25 mg IVPUSH Q6H PRN PRN Reason: Itching Diphenhydramine HCl (Benadryl) 25 mg PO Q6H PRN PRN Reason: Itching Hydromorphone HCl (Dilaudid) 0.5 mg IVPUSH Q2H PRN PRN Reason: Pain Last Admin: 01/07/20 05:51 Dose: 0.5 mg Documented by: Potassium Chloride/Dextrose/Sod Cl (D5 Ns With 20 Meq Kcl) 1,000 mls @ 125 mls/hr IV ASDIRECTED [facility] Last Admin: 01/07/20 02:00 Dose: 125 mls/hr Documented by: Cefazolin Sodium/Dextrose 2 gm (/ Premix) 50 mls @ 100 mls/hr IV ONCALL ONE Stop: 01/07/20 08:59 Lactulose (Chronulac) 30 gm NGTUBE BID [facility] Last Admin: 01/06/20 20:59 Dose: 30 gm Documented by: Naloxone HCl (Narcan) 0.1 mg IVPUSH Q3M PRN PRN Reason: Respiratory Depression Ondansetron HCl (Zofran) 4 mg IV Q4H PRN PRN Reason: Nausea/Vomiting Last Admin: 01/07/20 05:58 Dose: 4 mg Documented by: Sodium Chloride (Saline Flush) 10 ml FLUSH ASDIRECTED PRN PRN Reason: Keep Vein Open Last Admin: 01/03/20 16:58 Dose: 10 ml Documented by: Discontinued Medications Bupivacaine HCl (Marcaine 0.5%) Confirm Administered Dose 50 ml .ROUTE .STK-MED ONE Stop: 01/07/20 07:53 Bupivacaine HCl/Epinephrine Bitart (Marcaine 0.5%/Epinephrine 1:200,000) Confirm Administered Dose 50 ml .ROUTE .STK-MED ONE Stop: 01/07/20 07:59 Dexamethasone (Dexamethasone) Confirm Administered Dose 4 mg .ROUTE .STK-MED ONE Stop: 01/07/20 08:17 Glycopyrrolate (Robinul) Confirm Administered Dose 1 mg .ROUTE .STK-MED ONE Stop: 01/07/20 08:17 Hydromorphone HCl (Dilaudid [employer] 15 Mg In Ns 30 Ml) 0 mg IV ASDIRECTED PRN; Protocol PRN Reason: PAIN Last Admin: 01/03/20 17:32 Dose: 15 mg Documented by: Sodium Chloride (Normal Saline) 80 mls @ 3 mls/sec IV ASDIRECTED [facility] Stop: 01/03/20 16:31 Last Admin: 01/03/20 16:58 Dose: 3 mls/sec Documented by: Dextrose/Sodium Chloride (Dextrose 5%-Normal Saline) 1,000 mls @ 125 mls/hr IV ASDIRECTED [facility] Last Admin: 01/06/20 02:24 Dose: 125 mls/hr Documented by: Sodium Chloride (Normal Saline) 71 mls @ 3 mls/sec IV ASDIRECTED [facility] Stop: 01/06/20 10:31 Last Admin: 01/06/20 10:44 Dose: 3 mls/sec Documented by: Iopamidol (Isovue-300 (61%)) 100 ml IV . DIRECTED [facility]BY Stop: 01/03/20 16:31 Last Admin: 01/03/20 16:58 Dose: 100 ml Documented by: Iopamidol (Isovue-300 (61%)) 50 ml PO ASDIRECTED ONE Stop: 01/06/20 09:07 Last Admin: 01/06/20 09:21 Dose: 30 ml Documented by: Iopamidol (Isovue-300 (61%)) 92 ml IV ONETIME ONE Stop: 01/06/20 10:17 Last Admin: 01/06/20 10:44 Dose: 92 ml Documented by: Lidocaine HCl (Xylocaine 2% Jelly) 10 ml MUCMEM ONETIME ONE Stop: 01/04/20 12:41 Last Admin: 01/04/20 13:15 Dose: 10 ml Documented by: Neostigmine Methylsulfate (Neostigmine) Confirm Administered Dose 5 mg .ROUTE .STK-MED ONE Stop: 01/07/20 08:17 Ondansetron HCl (Zofran) 4 mg IV Q4H PRN PRN Reason: Nausea/Vomiting Ondansetron HCl (Zofran) Confirm Administered Dose 4 mg .ROUTE .STK-MED ONE Stop: 01/07/20 08:17 Propofol (Diprivan 20 Ml) Confirm Administered Dose 200 mg .ROUTE .STK-MED ONE Stop: 01/07/20 08:17 Rocuronium [place] (Zemuron) Confirm Administered Dose 50 mg .ROUTE .STK-MED ONE Stop: 01/07/20 08:17 Sodium Chloride (Saline Flush) 10 ml FLUSH ONETIME ONE Stop: 01/06/20 10:17 Last Admin: 01/06/20 17:31 Dose: Not Given Documented by: Succinylcholine Chloride (Quelicin) Confirm Administered Dose 200 mg .ROUTE .STK-MED ONE Stop: 01/07/20 08:17 - Exam General: Alert, Oriented HEENT: Pupils Equal, Pupils Reactive, EOMI, Mucous Membr. Moist/[place] Neck: Supple Lungs: Clear to Auscultation, Normal Respiratory Effort Cardiovascular: Regular Rate, Regular Rhythm GI/Abdominal Exam: Guarding, Tender, Abnormal Bowel Sounds Extremities: Normal Inspection, Normal Range of Motion, Non-Tender, No Pedal Edema, Normal Capillary Refill Peripheral Pulses: 1+: Radial (L), Radial (R) Psy/Mental Status: Alert, Normal Affect, Normal Mood Sepsis Event Note - Evaluation Sepsis Screening Result: No Definite Risk - Focused Exam Vital Signs: Vital Signs Temp Pulse Resp BP Pulse Ox 01/07/20 02:00 97.3 F 63 16 148/66 H 98 01/06/20 22:54 97.6 F 65 16 134/62 94 L - Problem List Review Problem List Initiated/Reviewed/Updated: Yes - My Orders Last 24 Hours: My Active Orders 01/06/20 08:45 Dextrose 5%-0.9% NaCl with KCl [D5 NS with 20 mEq KCl] 1,000 ml IV ASDIRECTED 01/06/20 09:30 Ondansetron [Zofran] 4 mg IV Q4H PRN 01/06/20 15:27 Renal Ltd Bi [US] Routine 01/08/20 05:00 CBC WITH AUTO DIFF [HEME] DAILY COMPREHENSIVE METABOLIC PN,CMP [CHEM] DAILY 01/09/20 05:00 CBC WITH AUTO DIFF [HEME] DAILY COMPREHENSIVE METABOLIC PN,CMP [CHEM] DAILY - Plan Plan:: Assessment/Plan: #1. Small bowel obstruction. A flat plate of the abdomen showed air-fluid levels significant worse from than yesterday. The white count is normal. He will need surgery to explore the reason for the obstruction. #2. History of diarrhea: Cultures are pending to evaluate diarrhea. #3. Prostate cancer. Treatment followed by an oncologist #4. Hypokalemia: improved with supplementation. He will be in surgery today and should be medically stable.
[2020-01-07] MEDS ORDERED: ceFAZolin 2 GM in Premix Bag 1 BAG IV ONE (08:30)
[2020-01-07] MEDS ORDERED: Ropivacaine 30 ML, dexAMETHasone 8 MG, EPINEPHrine 0.4 MG, Sodium Chloride 0.9% 47.6 ML NERVRT SCH ×4 (09:00)
--- NOTE | 2020-01-07 09:09 | CR ---
Abdomen 2V AP Flat Upright CLINICAL HISTORY: Ileus, abdominal pain FINDINGS: There is persistent moderate small bowel distention with scattered air-fluid levels. NG tube has been removed. There is no bowel wall thickening or free air identified. There are post surgical changes in the left lower quadrant. There are severe degenerative changes in the right hip and degenerative changes in the lumbar spine. IMPRESSION: Persistent moderate small bowel distention which has increased since prior study. NG tube is been removed. This may represent distal small bowel obstruction or severe ileus. Clinical correlation necessary
[2020-01-07] MEDS ORDERED: Naloxone 0.4 MG/ML SDV IV PRN (11:00)
[2020-01-07] MEDS: fentaNYL/Normal Saline 600 MCG/30 ML PCA Vial IV PRN (11:48)
--- NOTE | 2020-01-07 12:32 | US ---
Renal Ltd Bi CLINICAL HISTORY: Indeterminate right renal lesion. COMPARISON: CT 01/06/2020. TECHNIQUE: Multiple sonographic images were obtained through the kidneys in the sagittal and transverse projections. Right kidney measures 9.4 x 5.0 x 4.8 cm. Cortex measures 1.1 cm. In the midpole there is a 2.1 x 2.3 x 2.7 cm anechoic focus with no internal flow. There is a clear back wall. Left kidney measures 10.8 x 4.7 x 5.3 cm. Cortex measures 1.2 cm.. IMPRESSION: Low-attenuation focus on the right kidney on recent CT correlates to a simple cyst
--- NOTE | 2020-01-07 12:51 | OR ---
DATE OF PROCEDURE: 01/07/2020 SURGEON: Sundar Calix MD PROCEDURE: Transversus abdominis plane block bilaterally. COMPLICATION: None. WEB MERCHANT: None. RISKS: Risks, benefits, alternatives, and limitations including, but not limited to infection, bleeding, and injury to abdominal structures. PROCEDURE IN DETAIL: The patient was placed in supine position. The transversus plane was identified and 80% of the solution was injected on the right side without abnormality. The other side was then performed in a same manner, same fashion, same technique, in the same sequence using the same equipment. The patient tolerated the procedure well. Sundar Calix MD /[id number]
[2020-01-07] MEDS: Lactulose Soln 10 GM/15 ML 15 ML UD Cup NGTUBE SCH ×2 (12:55→21:19)
--- NOTE | 2020-01-07 13:05 | OR ---
DATE OF PROCEDURE: 01/07/2020 SURGEON: Sundar Calix MD PROCEDURES: 1. Exploratory laparotomy. 2. Lysis of adhesions. 3. Reduction of internal hernia. COMPLICATIONS: None. TRAVELING NURSE: None. ANESTHESIA: General. RISKS: Risks, benefits, alternatives, and limitations including, but not limited to infection, bleeding, perforation, sepsis, chronic wounds, chronic pain, fistula formation, other risks not listed here, but also included cardiovascular compromise due to age. PROCEDURE IN DETAIL: The patient was placed in supine position. A midline abdominal incision was made. This was carried down with electrocautery to the external oblique aponeurosis. Abdomen was entered sharply with a 15 blade. No evidence of enterotomy or injury was noted. The previous incision was opened further with electrocautery. The patient had a significantly dilated bowel. There was noted to be an internal hernia around a single band, which was ligated and reduced. Over the next 30 minutes, multiple adhesions were removed using blunt, sharp, or electrocautery dissection. At no point did the electrocautery be used in proximity to any bowel. The bowel was then ran in its entirety, which looked to be from the ligament of [place]itz to remnant of sigmoid colon. The anastomosis of the sigmoid colon to the bowel, stool and fluid could easily be passed through this without difficulty. This was checked twice. The abdomen was irrigated. The liquid was removed. The fascia was closed with #1 Vicryl in a running fashion. Claus were applied. The patient tolerated the procedure well. Sundar Calix MD /[id number]
--- NOTE | 2020-01-07 18:29 | PN ---
DATE OF SERVICE: 01/07/2020 SUBJECTIVE: The patient is unchanged from yesterday. Abdominal pain is slightly worse. No GI activity. OBJECTIVE: VITAL SIGNS: Stable. CARDIOVASCULAR: Regular rhythm and rate. RESPIRATORY: Lungs clear to auscultation bilaterally. ABDOMEN: Mild to moderately distended. ASSESSMENT: Small bowel obstruction. PLAN: The patient was very insistent on not having surgery. Unfortunately, we made every attempt to avoid this. The patient has not had any GI activity, despite multiple attempts. Subsequent abdominal films show worsening probable bowel obstruction. The patient originally understood the risks, benefits, alternatives, and limitations of both surgical and nonsurgical intervention. He understood that his risks are higher with delayed surgery, which he opted for. The patient was instructed on that on a daily basis. He also understands that this is a very high risk surgery, due to the significant complications previously. Nonetheless, I feel this is his only choice and further delay would result in worsening of his condition. The patient understands these risks. He wishes to proceed. We discussed risks, benefits, alternatives, and limitations of the procedure including infection, bleeding, possible bowel resection, gastrointestinal leaks, fistula formation, septic shock, cardiovascular complications due to his advanced age, and other risks not listed here. Also, of note, I did attempt to contact the at the number listed in the chart, voicemails were left. Every attempt, including multiple phone calls, was made to contact her prior to start of surgery. Sundar Calix MD /[id number]
[2020-01-08] MEDS: Dextrose 5%-0.9% NaCl with KCl 1,000 ML IV SCH ×3 (03:32→19:14)
--- NOTE | 2020-01-08 09:52 | PCM.PN ---
- General Info Date of Service: 01/08/20 Subjective Update: He is having a lot of pain. He has no other complaints. Functional Status: Reports: Ambulating - Review of Systems General: Reports: Weakness HEENT: Reports: No Symptoms Pulmonary: Reports: No Symptoms Cardiovascular: Reports: No Symptoms Gastrointestinal: Reports: Abdominal Pain Genitourinary: Reports: No Symptoms Musculoskeletal: Reports: No Symptoms Neurological: Reports: No Symptoms Psychiatric: Reports: No Symptoms - Patient Data Vitals - Most Recent: Last Vital Signs Temp 97.6 F 01/08/20 07:00 Pulse 79 01/08/20 07:00 Resp 18 01/08/20 07:00 BP 109/65 01/08/20 07:00 Pulse Ox 93 L 01/08/20 07:21 Weight - Most Recent: 135 lb 0.001 oz I&O - Last 24 Hours: Intake & Output 01/07/20 01/08/20 01/08/20 22:59 06:59 14:59 Intake Total 805 Output Total 1100 580 Balance -295 -580 Lab Results Last 24 Hours: Laboratory Results - last 24 hr 01/08/20 01/08/20 Range/Units 05:30 05:30 WBC 9.6 (4.5-11.0) K/uL RBC 3.91 L (4.30-5.90) M/uL Hgb 12.4 (12.0-15.0) g/dL Hct 37.5 L (40.0-54.0) % MCV 96 (80-98) fL MCH 32 H (27-31) pg MCHC 33 (32-36) % Plt Count 258 (150-400) K/uL Neut % (Auto) 82 H (36-66) % Lymph % (Auto) 6 L (24-44) % [place] % (Auto) 12 H (2-6) % Eos % (Auto) 0 L (2-4) % Baso % (Auto) 0 (0-1) % Sodium 147 (140-148) mmol/L Potassium 3.4 L (3.6-5.2) mmol/L Chloride 111 H (100-108) mmol/L Carbon Dioxide 26 (21-32) mmol/L Anion Gap 13.4 (5.0-14.0) mmol/L BUN 9 (7-18) mg/dL Creatinine 0.9 (0.8-1.3) mg/dL Est Cr Clr Drug Dosing 54.81 mL/min Estimated GFR (MDRD) > 60 (>60) Glucose 160 H (74-106) mg/dL Calcium 8.1 L (8.5-10.1) mg/dL Total Bilirubin 0.6 (0.2-1.0) mg/dL AST 28 (15-37) U/L ALT 13 (12-78) U/L Alkaline Phosphatase 46 (46-116) U/L Total Protein 5.3 L (6.4-8.2) g/dL Albumin 2.1 L (3.4-5.0) g/dL Globulin 3.2 (2.3-3.5) g/dL Albumin/Globulin Ratio 0.7 L (1.2-2.2) Med Orders - Current: Current Medications Diphenhydramine HCl (Benadryl) 25 mg IVPUSH Q6H PRN PRN Reason: Itching Last Admin: 01/08/20 01:55 Dose: 25 mg Documented by: Diphenhydramine HCl (Benadryl) 25 mg PO Q6H PRN PRN Reason: Itching Fentanyl Citrate (Fentanyl In Ns 20 Mcg/Ml 30 Ml Tube Building Machine Operator) 0 mcg IV ASDIRECTED PRN; Protocol PRN Reason: Pain Last Admin: 01/07/20 11:48 Dose: 600 mcg Documented by: Potassium Chloride/Dextrose/Sod Cl (D5 Ns With 20 Meq Kcl) 1,000 mls @ 125 mls/hr IV ASDIRECTED [facility] Last Admin: 01/08/20 03:32 Dose: 125 mls/hr Documented by: Lactulose (Chronulac) 30 gm NGTUBE BID [facility] Last Admin: 01/07/20 21:19 Dose: 30 gm Documented by: Naloxone HCl (Narcan) 0.1 mg IV ASDIRECTED PRN PRN Reason: decreased respiratory rate Ondansetron HCl (Zofran) 4 mg IV Q4H PRN PRN Reason: Nausea/Vomiting Last Admin: 01/07/20 05:58 Dose: 4 mg Documented by: Sodium Chloride (Saline Flush) 10 ml FLUSH ASDIRECTED PRN PRN Reason: Keep Vein Open Last Admin: 01/03/20 16:58 Dose: 10 ml Documented by: Discontinued Medications Bupivacaine HCl (Marcaine 0.5%) Confirm Administered Dose 50 ml .ROUTE .[facility] ONE Stop: 01/07/20 07:53 Bupivacaine HCl/Epinephrine Bitart (Marcaine 0.5%/Epinephrine 1:200,000) Confirm Administered Dose 50 ml .ROUTE .[facility] ONE Stop: 01/07/20 07:59 Bupivacaine HCl/Epinephrine Bitart (Marcaine 0.5%/Epinephrine 1:200,000) Confirm Administered Dose 50 ml .ROUTE .[facility] ONE Stop: 01/07/20 08:25 Ropivacaine 30 ml/Dexamethasone 8 mg/Epinephrine HCl 0.4 mg/ Sodium Chloride 47.6 ml 0 ml NERVRT ASDIRECTED [facility] Last Admin: 01/07/20 09:03 Dose: 80 syringe Documented by: Dexamethasone (Dexamethasone) Confirm Administered Dose 4 mg .ROUTE .[facility] ONE Stop: 01/07/20 08:17 Fentanyl (Sublimaze) Confirm Administered Dose 250 mcg .ROUTE .[facility] ONE Stop: 01/07/20 08:18 Glycopyrrolate (Robinul) Confirm Administered Dose 1 mg .ROUTE .[facility] ONE Stop: 01/07/20 08:17 Hydromorphone HCl (Dilaudid Tube Building Machine Operator 15 Mg In Ns 30 Ml) 0 mg IV ASDIRECTED PRN; Protocol PRN Reason: PAIN Last Admin: 01/03/20 17:32 Dose: 15 mg Documented by: Hydromorphone HCl (Dilaudid) 0.5 mg IVPUSH Q2H PRN PRN Reason: Pain Last Admin: 01/07/20 05:51 Dose: 0.5 mg Documented by: Sodium Chloride (Normal Saline) 80 mls @ 3 mls/sec IV ASDIRECTED [facility] Stop: 01/03/20 16:31 Last Admin: 01/03/20 16:58 Dose: 3 mls/sec Documented by: Dextrose/Sodium Chloride (Dextrose 5%-Normal Saline) 1,000 mls @ 125 mls/hr IV ASDIRECTED [facility] Last Admin: 01/06/20 02:24 Dose: 125 mls/hr Documented by: Sodium Chloride (Normal Saline) 71 mls @ 3 mls/sec IV ASDIRECTED [facility] Stop: 01/06/20 10:31 Last Admin: 01/06/20 10:44 Dose: 3 mls/sec Documented by: Cefazolin Sodium/Dextrose 2 gm (/ Premix) 50 mls @ 100 mls/hr IV ONCALL ONE Stop: 01/07/20 08:59 Last Admin: 01/07/20 09:03 Dose: 100 mls/hr Documented by: Iopamidol (Isovue-300 (61%)) 100 ml IV . DIRECTED [facility] Stop: 01/03/20 16:31 Last Admin: 01/03/20 16:58 Dose: 100 ml Documented by: Iopamidol (Isovue-300 (61%)) 50 ml PO ASDIRECTED ONE Stop: 01/06/20 09:07 Last Admin: 01/06/20 09:21 Dose: 30 ml Documented by: Iopamidol (Isovue-300 (61%)) 92 ml IV ONETIME ONE Stop: 01/06/20 10:17 Last Admin: 01/06/20 10:44 Dose: 92 ml Documented by: Lidocaine HCl (Xylocaine 2% Jelly) 10 ml MUCMEM ONETIME ONE Stop: 01/04/20 12:41 Last Admin: 01/04/20 13:15 Dose: 10 ml Documented by: Naloxone HCl (Narcan) 0.1 mg IVPUSH Q3M PRN PRN Reason: Respiratory Depression Neostigmine Methylsulfate (Neostigmine) Confirm Administered Dose 5 mg .ROUTE .[facility] ONE Stop: 01/07/20 08:17 Ondansetron HCl (Zofran) 4 mg IV Q4H PRN PRN Reason: Nausea/Vomiting Ondansetron HCl (Zofran) Confirm Administered Dose 4 mg .ROUTE .[facility] ONE Stop: 01/07/20 08:17 Propofol (Diprivan 20 Ml) Confirm Administered Dose 200 mg .ROUTE .[facility] ONE Stop: 01/07/20 08:17 Rocuronium [place] (Zemuron) Confirm Administered Dose 50 mg .ROUTE .[facility] ONE Stop: 01/07/20 08:17 Sodium Chloride (Saline Flush) 10 ml FLUSH ONETIME ONE Stop: 01/06/20 10:17 Last Admin: 01/06/20 17:31 Dose: Not Given Documented by: Succinylcholine Chloride (Quelicin) Confirm Administered Dose 200 mg .ROUTE .[facility] ONE Stop: 01/07/20 08:17 - Exam General: Alert, Oriented Neck: Supple Lungs: Clear to Auscultation, Normal Respiratory Effort Cardiovascular: Regular Rate, Regular Rhythm GI/Abdominal Exam: Tender Extremities: Normal Inspection, Normal Range of Motion, Non-Tender, No Pedal Edema, Normal Capillary Refill Peripheral Pulses: 1+: Radial (L), Radial (R) Psy/Mental Status: Alert, Normal Affect, Normal Mood Sepsis Event Note - Evaluation Sepsis Screening Result: No Definite Risk - Focused Exam Vital Signs: Vital Signs Temp Pulse Resp BP Pulse Ox 01/08/20 07:21 93 L 01/08/20 07:00 97.6 F 79 18 109/65 93 L 01/08/20 03:09 97.9 F 75 16 115/70 94 L 01/08/20 01:00 92 L 01/07/20 22:44 98.3 F 78 16 117/72 94 L - Problem List Review Problem List Initiated/Reviewed/Updated: Yes - My Orders Last 24 Hours: My Active Orders 01/09/20 05:00 CBC WITH AUTO DIFF [HEME] DAILY COMPREHENSIVE METABOLIC PN,CMP [CHEM] DAILY - Plan Plan:: Assessment/Plan: #1. Small bowel obstruction secondary to adhesions. WBC and HB stable. HIe is havinig abd. pain but sensitive to narcotics tutu will not increase pain meds as last time he became confused and had to call law enforcement. #2. History of diarrhea: Chronic #3. Prostate cancer. Treatment followed by an oncologist #4. Hypokalemia: improved with supplementation.
[2020-01-08] MEDS: Lactulose Soln 10 GM/15 ML 15 ML UD Cup NGTUBE SCH ×2 (10:02→21:29)
--- NOTE | 2020-01-08 11:12 | PN ---
DATE OF SERVICE: 01/08/2020 SUBJECTIVE: The patient is doing well today. Pain is controlled. No nausea, vomiting, shortness of breath, or chest pain. NG output is approximately 100 to 150. OBJECTIVE: VITAL SIGNS: Stable. He is afebrile. CARDIOVASCULAR: Regular rhythm and rate. RESPIRATORY: Lungs clear to auscultation bilaterally. ABDOMEN: Dressing intact ASSESSMENT: Status post exploratory laparotomy. PLAN: Keep NG tube at this time. We will remove his Carr catheter. Continue IV fluids per Dr. Camargo. No specific changes aside from this. Sundar Calix MD /[id number]
[2020-01-09] MEDS: fentaNYL/Normal Saline 600 MCG/30 ML PCA Vial IV PRN (01:33)
--- NOTE | 2020-01-09 10:51 | PN ---
DATE OF SERVICE: 01/09/2020 SUBJECTIVE: The patient is doing similar. No nausea, vomiting, shortness of breath, or chest pain. No GI activity. OBJECTIVE: VITAL SIGNS: Stable. CARDIOVASCULAR: Regular rhythm and rate. RESPIRATORY: Lungs, poor inspiratory effort bilaterally. ASSESSMENT: Status post exploratory laparotomy and lysis of adhesions. PLAN: 1. We will continue NG tube at this time. No GI activity yet as expected. 2. Fluid, electrolyte, and nutrition: We will keep him n.p.o. at this time. 3. We will evaluate for PICC line and TPN tomorrow. 4. Infectious Disease: Afebrile, normal white blood cell count. No significant other abnormalities. Sundar Calix MD /[id number]
[2020-01-09] MEDS: Enoxaparin 40 MG/0.4 ML Syringe SUBCUT SCH (11:29)
[2020-01-09] MEDS: Dextrose 5%-0.9% NaCl with KCl 1,000 ML IV SCH ×2 (11:30→19:38)
[2020-01-09] MEDS: Lactulose Soln 10 GM/15 ML 15 ML UD Cup NGTUBE SCH ×2 (11:31→20:55)
--- NOTE | 2020-01-09 11:41 | PCM.PN ---
- General Info Date of Service: 01/09/20 Subjective Update: Feeling better today still not passing gas - Review of Systems General: Reports: Weakness HEENT: Reports: No Symptoms Pulmonary: Reports: No Symptoms Cardiovascular: Reports: No Symptoms Gastrointestinal: Reports: Abdominal Pain Genitourinary: Reports: No Symptoms Musculoskeletal: Reports: No Symptoms Skin: Reports: No Symptoms Neurological: Reports: No Symptoms Psychiatric: Reports: No Symptoms - Patient Data Vitals - Most Recent: Last Vital Signs Temp 96.1 F L 01/09/20 10:18 Pulse 88 01/09/20 10:18 Resp 18 01/09/20 10:18 BP 105/77 01/09/20 10:18 Pulse Ox 93 L 01/09/20 10:18 Weight - Most Recent: 135 lb 0.001 oz I&O - Last 24 Hours: Intake & Output 01/08/20 01/09/20 01/09/20 22:59 06:59 14:59 Intake Total 1470 Output Total 550 1100 Balance -550 370 Lab Results Last 24 Hours: Laboratory Results - last 24 hr 01/09/20 01/09/20 Range/Units 04:10 04:10 WBC 7.7 (4.5-11.0) K/uL RBC 3.56 L (4.30-5.90) M/uL Hgb 11.4 L (12.0-15.0) g/dL Hct 34.4 L (40.0-54.0) % MCV 97 (80-98) fL MCH 32 H (27-31) pg MCHC 33 (32-36) % Plt Count 209 (150-400) K/uL Neut % (Auto) 76 H (36-66) % Lymph % (Auto) 9 L (24-44) % [place] % (Auto) 15 H (2-6) % Eos % (Auto) 0 L (2-4) % Baso % (Auto) 0 (0-1) % Sodium 149 H (140-148) mmol/L Potassium 3.5 L (3.6-5.2) mmol/L Chloride 115 H (100-108) mmol/L Carbon Dioxide 28 (21-32) mmol/L Anion Gap 9.5 (5.0-14.0) mmol/L BUN 10 (7-18) mg/dL Creatinine 0.8 (0.8-1.3) mg/dL Est Cr Clr Drug Dosing 61.66 mL/min Estimated GFR (MDRD) > 60 (>60) Glucose 140 H (74-106) mg/dL Calcium 7.9 L (8.5-10.1) mg/dL Total Bilirubin 0.5 (0.2-1.0) mg/dL AST 22 (15-37) U/L ALT 12 (12-78) U/L Alkaline Phosphatase 44 L (46-116) U/L Total Protein 4.8 L (6.4-8.2) g/dL Albumin 1.8 L (3.4-5.0) g/dL Globulin 3.0 (2.3-3.5) g/dL Albumin/Globulin Ratio 0.6 L (1.2-2.2) Med Orders - Current: Current Medications Diphenhydramine HCl (Benadryl) 25 mg IVPUSH Q6H PRN PRN Reason: Itching Last Admin: 01/08/20 01:55 Dose: 25 mg Documented by: Diphenhydramine HCl (Benadryl) 25 mg PO Q6H PRN PRN Reason: Itching Enoxaparin Sodium (Lovenox) 40 mg SUBCUT DAILY [facility] Last Admin: 01/09/20 11:29 Dose: 40 mg Documented by: Fentanyl Citrate (Fentanyl In Ns 20 Mcg/Ml 30 Ml Production Supply Equipment Tender) 0 mcg IV ASDIRECTED PRN; Protocol PRN Reason: Pain Last Admin: 01/09/20 01:33 Dose: 600 mcg Documented by: Potassium Chloride/Dextrose/Sod Cl (D5 Ns With 20 Meq Kcl) 1,000 mls @ 125 mls/hr IV ASDIRECTED [facility] Last Admin: 01/09/20 11:30 Dose: 125 mls/hr Documented by: Lactulose (Chronulac) 30 gm NGTUBE BID [facility] Last Admin: 01/09/20 11:31 Dose: 30 gm Documented by: Naloxone HCl (Narcan) 0.1 mg IV ASDIRECTED PRN PRN Reason: decreased respiratory rate Ondansetron HCl (Zofran) 4 mg IV Q4H PRN PRN Reason: Nausea/Vomiting Last Admin: 01/07/20 05:58 Dose: 4 mg Documented by: Sodium Chloride (Saline Flush) 10 ml FLUSH ASDIRECTED PRN PRN Reason: Keep Vein Open Last Admin: 01/03/20 16:58 Dose: 10 ml Documented by: Discontinued Medications Bupivacaine HCl (Marcaine 0.5%) Confirm Administered Dose 50 ml .ROUTE .[facility] ONE Stop: 01/07/20 07:53 Bupivacaine HCl/Epinephrine Bitart (Marc[place] 0.5%/Epinephrine 1:200,000) Confirm Administered Dose 50 ml .ROUTE .[facility] ONE Stop: 01/07/20 07:59 Bupivacaine HCl/Epinephrine Bitart (Marc[place] 0.5%/Epinephrine 1:200,000) Confirm Administered Dose 50 ml .ROUTE .[facility] ONE Stop: 01/07/20 08:25 Ropivacaine 30 ml/Dexamethasone 8 mg/Epinephrine HCl 0.4 mg/ Sodium Chloride 47.6 ml 0 ml NERVRT ASDIRECTED [facility] Last Admin: 01/07/20 09:03 Dose: 80 syringe Documented by: Dexamethasone (Dexamethasone) Confirm Administered Dose 4 mg .ROUTE .[facility] ONE Stop: 01/07/20 08:17 Fentanyl (Sublimaze) Confirm Administered Dose 250 mcg .ROUTE .[facility] ONE Stop: 01/07/20 08:18 Glycopyrrolate (Robinul) Confirm Administered Dose 1 mg .ROUTE .[facility] ONE Stop: 01/07/20 08:17 Hydromorphone HCl (Dilaudid Production Supply Equipment Tender 15 Mg In Ns 30 Ml) 0 mg IV ASDIRECTED PRN; Protocol PRN Reason: PAIN Last Admin: 01/03/20 17:32 Dose: 15 mg Documented by: Hydromorphone HCl (Dilaudid) 0.5 mg IVPUSH Q2H PRN PRN Reason: Pain Last Admin: 01/07/20 05:51 Dose: 0.5 mg Documented by: Sodium Chloride (Normal Saline) 80 mls @ 3 mls/sec IV ASDIRECTED [facility] Stop: 01/03/20 16:31 Last Admin: 01/03/20 16:58 Dose: 3 mls/sec Documented by: Dextrose/Sodium Chloride (Dextrose 5%-Normal Saline) 1,000 mls @ 125 mls/hr IV ASDIRECTED [facility] Last Admin: 01/06/20 02:24 Dose: 125 mls/hr Documented by: Sodium Chloride (Normal Saline) 71 mls @ 3 mls/sec IV ASDIRECTED [facility] Stop: 01/06/20 10:31 Last Admin: 01/06/20 10:44 Dose: 3 mls/sec Documented by: Cefazolin Sodium/Dextrose 2 gm (/ Premix) 50 mls @ 100 mls/hr IV ONCALL ONE Stop: 01/07/20 08:59 Last Admin: 01/07/20 09:03 Dose: 100 mls/hr Documented by: Iopamidol (Isovue-300 (61%)) 100 ml IV . DIRECTED [facility] Stop: 01/03/20 16:31 Last Admin: 01/03/20 16:58 Dose: 100 ml Documented by: Iopamidol (Isovue-300 (61%)) 50 ml PO ASDIRECTED ONE Stop: 01/06/20 09:07 Last Admin: 01/06/20 09:21 Dose: 30 ml Documented by: Iopamidol (Isovue-300 (61%)) 92 ml IV ONETIME ONE Stop: 01/06/20 10:17 Last Admin: 01/06/20 10:44 Dose: 92 ml Documented by: Lidocaine HCl (Xylocaine 2% Jelly) 10 ml MUCMEM ONETIME ONE Stop: 01/04/20 12:41 Last Admin: 01/04/20 13:15 Dose: 10 ml Documented by: Naloxone HCl (Narcan) 0.1 mg IVPUSH Q3M PRN PRN Reason: Respiratory Depression Neostigmine Methylsulfate (Neostigmine) Confirm Administered Dose 5 mg .ROUTE .[facility] ONE Stop: 01/07/20 08:17 Ondansetron HCl (Zofran) 4 mg IV Q4H PRN PRN Reason: Nausea/Vomiting Ondansetron HCl (Zofran) Confirm Administered Dose 4 mg .ROUTE .[facility] ONE Stop: 01/07/20 08:17 Propofol (Diprivan 20 Ml) Confirm Administered Dose 200 mg .ROUTE .[facility] ONE Stop: 01/07/20 08:17 Rocuronium [place] (Zemuron) Confirm Administered Dose 50 mg .ROUTE .[facility] ONE Stop: 01/07/20 08:17 Sodium Chloride (Saline Flush) 10 ml FLUSH ONETIME ONE Stop: 01/06/20 10:17 Last Admin: 01/06/20 17:31 Dose: Not Given Documented by: Succinylcholine Chloride (Quelicin) Confirm Administered Dose 200 mg .ROUTE .STK-MED ONE Stop: 01/07/20 08:17 - Exam General: Alert, Oriented HEENT: Pupils Equal, Pupils Reactive, EOMI, Mucous Membr. Moist/[place] Neck: Supple Lungs: Clear to Auscultation Cardiovascular: Regular Rate, Regular Rhythm GI/Abdominal Exam: Abnormal Bowel Sounds Extremities: Normal Inspection, Normal Range of Motion, Non-Tender, No Pedal Sundar ma, Normal Capillary Refill Peripheral Pulses: 1+: Radial (L), Radial (R) Skin: Warm, Dry, Intact Psy/Mental Status: Alert, Normal Affect, Normal Mood Sepsis Event Note - Evaluation Sepsis Screening Result: No Definite Risk - Focused Exam Vital Signs: Vital Signs Temp Pulse Resp BP Pulse Ox 01/09/20 10:18 96.1 F L 88 18 105/77 93 L 01/09/20 07:18 96 01/09/20 07:00 97.5 F 83 18 112/62 96 01/09/20 03:07 98.2 F 82 16 106/67 96 - Problem List Review Problem List Initiated/Reviewed/Updated: Yes - Plan Plan:: Assessment/Plan: #1. Small bowel obstruction secondary to adhesions. WBC and HB stable. He is havinig decreased abd. pain. #2. History of diarrhea: Chronic #3. Prostate cancer. Treatment followed by an oncologist #4. Hypokalemia: improved with supplementation.
[2020-01-10] MEDS: Dextrose 5%-0.9% NaCl with KCl 1,000 ML IV SCH (03:36)
--- NOTE | 2020-01-10 09:38 | CR ---
Abdomen 2V AP Flat Upright CLINICAL HISTORY: Abdominal pain FINDINGS: There is some persistent diffuse small bowel distention. This shows some improvement when compared to prior study. NG tube has been placed. There is some gas in the transverse colon and sigmoid IMPRESSION: Interval placement of NG tube Decrease in small bowel distention There is some passage of gas into the transverse and sigmoid colon
[2020-01-10] MEDS: fentaNYL/Normal Saline 600 MCG/30 ML PCA Vial IV PRN (11:15)
[2020-01-10] MEDS: Lactulose Soln 10 GM/15 ML 15 ML UD Cup NGTUBE SCH ×2 (11:18→20:39)
[2020-01-10] MEDS: Enoxaparin 40 MG/0.4 ML Syringe SUBCUT SCH (11:18)
[2020-01-10] MEDS: Dextrose 5% in Water 1,000 ML IV SCH ×2 (11:42→19:39)
--- NOTE | 2020-01-10 12:48 | PCM.PN ---
- General Info Date of Service: 01/10/20 Functional Status: Reports: Pain Controlled - Review of Systems General: Reports: Weakness HEENT: Reports: No Symptoms Pulmonary: Reports: Cough, Sputum Cardiovascular: Reports: No Symptoms Gastrointestinal: Reports: Abdominal Pain Musculoskeletal: Reports: No Symptoms Skin: Reports: No Symptoms Neurological: Reports: No Symptoms Psychiatric: Reports: No Symptoms - Patient Data Vitals - Most Recent: Last Vital Signs Temp 98.4 F 01/10/20 10:00 Pulse 89 01/10/20 10:00 Resp 16 01/10/20 10:00 BP 110/69 01/10/20 10:00 Pulse Ox 97 01/10/20 10:00 Weight - Most Recent: 135 lb 0.001 oz I&O - Last 24 Hours: Intake & Output 01/09/20 01/10/20 01/10/20 22:59 06:59 14:59 Intake Total 1515 505 Output Total 300 150 350 Balance -300 1365 155 Lab Results Last 24 Hours: Laboratory Results - last 24 hr 01/10/20 01/10/20 01/10/20 Range/Units 04:10 04:10 12:00 WBC 6.7 (4.5-11.0) K/uL RBC 3.56 L (4.30-5.90) M/uL Hgb 11.1 L (12.0-15.0) g/dL Hct 34.7 L (40.0-54.0) % MCV 98 (80-98) fL MCH 31 (27-31) pg MCHC 32 (32-36) % Plt Count 201 (150-400) K/uL Neut % (Auto) 75 H (36-66) % Lymph % (Auto) 11 L (24-44) % [place] % (Auto) 13 H (2-6) % Eos % (Auto) 1 L (2-4) % Baso % (Auto) 0 (0-1) % Sodium 151 H (140-148) mmol/L Potassium 3.3 L (3.6-5.2) mmol/L Chloride 117 H (100-108) mmol/L Carbon Dioxide 28 (21-32) mmol/L Anion Gap 9.3 (5.0-14.0) mmol/L BUN 9 (7-18) mg/dL Creatinine 0.7 L (0.8-1.3) mg/dL Est Cr Clr Drug Dosing 70.47 mL/min Estimated GFR (MDRD) > 60 (>60) Glucose 127 H (74-106) mg/dL POC Glucose 124 H (74-106) MG/DL Calcium 7.8 L (8.5-10.1) mg/dL Med Orders - Current: Current Medications Diphenhydramine HCl (Benadryl) 25 mg IVPUSH Q6H PRN PRN Reason: Itching Last Admin: 01/08/20 01:55 Dose: 25 mg Documented by: Diphenhydramine HCl (Benadryl) 25 mg PO Q6H PRN PRN Reason: Itching Enoxaparin Sodium (Lovenox) 40 mg SUBCUT DAILY [facility] Last Admin: 01/10/20 11:18 Dose: 40 mg Documented by: Fentanyl Citrate (Fentanyl In Ns 20 Mcg/Ml 30 Ml Master Dyer) 0 mcg IV ASDIRECTED PRN; Protocol PRN Reason: Pain Last Admin: 01/10/20 11:15 Dose: 600 mcg Documented by: Dextrose/Water (Dextrose 5% In Water) 1,000 mls @ 125 mls/hr IV ASDIRECTED [facility] Last Admin: 01/10/20 11:42 Dose: 125 mls/hr Documented by: Multivitamins/Minerals 10 ml/Chromium/Copper/Manganese/Seleni/Zn 1 ml/ Amino Ac/Electrol/Dextrose/Calcium 1,011 mls @ 82 mls/hr IV .BY DURATION [facility] Amino Ac/Electrol/Dextrose/Calcium (Clinimix E 5/15) 1,000 mls @ 82 mls/hr IV .BY DURATION [facility] Fat Emulsion Intravenous (Intralipid 20%) 100 mls @ 8.4 mls/hr IV ONETIME ONE Stop: 01/11/20 03:54 Lactulose (Chronulac) 30 gm NGTUBE BID [facility] Last Admin: 01/10/20 11:18 Dose: 30 gm Documented by: Naloxone HCl (Narcan) 0.1 mg IV ASDIRECTED PRN PRN Reason: decreased respiratory rate Ondansetron HCl (Zofran) 4 mg IV Q4H PRN PRN Reason: Nausea/Vomiting Last Admin: 01/07/20 05:58 Dose: 4 mg Documented by: Sodium Chloride (Saline Flush) 10 ml FLUSH ASDIRECTED PRN PRN Reason: Keep Vein Open Last Admin: 01/03/20 16:58 Dose: 10 ml Documented by: Discontinued Medications Bupivacaine HCl (Marcaine 0.5%) Confirm Administered Dose 50 ml .ROUTE .STK-MED ONE Stop: 01/07/20 07:53 Bupivacaine HCl/Epinephrine Bitart ([place] 0.5%/Epinephrine 1:200,000) Confirm Administered Dose 50 ml .ROUTE .STK-MED ONE Stop: 01/07/20 07:59 Bupivacaine HCl/Epinephrine Bitart ([place] 0.5%/Epinephrine 1:200,000) Confirm Administered Dose 50 ml .ROUTE .STK-MED ONE Stop: 01/07/20 08:25 Ropivacaine 30 ml/Dexamethasone 8 mg/Epinephrine HCl 0.4 mg/ Sodium Chloride 47.6 ml 0 ml NERVRT ASDIRECTED [facility] Last Admin: 01/07/20 09:03 Dose: 80 syringe Documented by: Dexamethasone (Dexamethasone) Confirm Administered Dose 4 mg .ROUTE .STK-MED ONE Stop: 01/07/20 08:17 Fentanyl (Sublimaze) Confirm Administered Dose 250 mcg .ROUTE .STK-MED ONE Stop: 01/07/20 08:18 Glycopyrrolate (Robinul) Confirm Administered Dose 1 mg .ROUTE .STK-MED ONE Stop: 01/07/20 08:17 Hydromorphone HCl (Dilaudid Master Dyer 15 Mg In Ns 30 Ml) 0 mg IV ASDIRECTED PRN; Protocol PRN Reason: PAIN Last Admin: 01/03/20 17:32 Dose: 15 mg Documented by: Hydromorphone HCl (Dilaudid) 0.5 mg IVPUSH Q2H PRN PRN Reason: Pain Last Admin: 01/07/20 05:51 Dose: 0.5 mg Documented by: Sodium Chloride (Normal Saline) 80 mls @ 3 mls/sec IV ASDIRECTED [facility] Stop: 01/03/20 16:31 Last Admin: 01/03/20 16:58 Dose: 3 mls/sec Documented by: Dextrose/Sodium Chloride (Dextrose 5%-Normal Saline) 1,000 mls @ 125 mls/hr IV ASDIRECTED [facility] Last Admin: 01/06/20 02:24 Dose: 125 mls/hr Documented by: Potassium Chloride/Dextrose/Sod Cl (D5 Ns With 20 Meq Kcl) 1,000 mls @ 125 mls/hr IV ASDIRECTED [facility] Last Admin: 01/10/20 03:36 Dose: 125 mls/hr Documented by: Sodium Chloride (Normal Saline) 71 mls @ 3 mls/sec IV ASDIRECTED [facility] Stop: 01/06/20 10:31 Last Admin: 01/06/20 10:44 Dose: 3 mls/sec Documented by: Cefazolin Sodium/Dextrose 2 gm (/ Premix) 50 mls @ 100 mls/hr IV ONCALL ONE Stop: 01/07/20 08:59 Last Admin: 01/07/20 09:03 Dose: 100 mls/hr Documented by: Iopamidol (Isovue-300 (61%)) 100 ml IV . DIRECTED [facility] Stop: 01/03/20 16:31 Last Admin: 01/03/20 16:58 Dose: 100 ml Documented by: Iopamidol (Isovue-300 (61%)) 50 ml PO ASDIRECTED ONE Stop: 01/06/20 09:07 Last Admin: 01/06/20 09:21 Dose: 30 ml Documented by: Iopamidol (Isovue-300 (61%)) 92 ml IV ONETIME ONE Stop: 01/06/20 10:17 Last Admin: 01/06/20 10:44 Dose: 92 ml Documented by: Lidocaine HCl (Xylocaine 2% Jelly) 10 ml MUCMEM ONETIME ONE Stop: 01/04/20 12:41 Last Admin: 01/04/20 13:15 Dose: 10 ml Documented by: Naloxone HCl (Narcan) 0.1 mg IVPUSH Q3M PRN PRN Reason: Respiratory Depression Neostigmine Methylsulfate (Neostigmine) Confirm Administered Dose 5 mg .ROUTE .STK-MED ONE Stop: 01/07/20 08:17 Ondansetron HCl (Zofran) 4 mg IV Q4H PRN PRN Reason: Nausea/Vomiting Ondansetron HCl (Zofran) Confirm Administered Dose 4 mg .ROUTE .STK-MED ONE Stop: 01/07/20 08:17 Propofol (Diprivan 20 Ml) Confirm Administered Dose 200 mg .ROUTE .STK-MED ONE Stop: 01/07/20 08:17 Rocuronium [place] (Zemuron) Confirm Administered Dose 50 mg .ROUTE .STK-MED ONE Stop: 01/07/20 08:17 Sodium Chloride (Saline Flush) 10 ml FLUSH ONETIME ONE Stop: 01/06/20 10:17 Last Admin: 01/06/20 17:31 Dose: Not Given Documented by: Succinylcholine Chloride (Quelicin) Confirm Administered Dose 200 mg .ROUTE .STK-MED ONE Stop: 01/07/20 08:17 - Exam General: Alert, Oriented HEENT: Pupils Equal, Pupils Reactive, EOMI, Mucous Membr. Moist/[place] Neck: Supple Lungs: Clear to Auscultation, Normal Respiratory Effort Cardiovascular: Regular Rate, Regular Rhythm GI/Abdominal Exam: Normal Bowel Sounds, Soft, Non-Tender, No Organomegaly, No Distention, No Abnormal Bruit, No Mass, Pelvis Stable Peripheral Pulses: 1+: Radial (L), Radial (R) Skin: Warm, Dry, Intact Psy/Mental Status: Alert, Normal Affect, Normal Mood Sepsis Event Note - Evaluation Sepsis Screening Result: No Definite Risk - Focused Exam Vital Signs: Vital Signs Temp Pulse Resp BP Pulse Ox 01/10/20 10:00 98.4 F 89 16 110/69 97 01/10/20 07:11 95 01/10/20 06:00 98.1 F 86 18 114/63 95 01/10/20 02:33 96.3 F L 89 18 121/78 95 01/10/20 01:00 98 - Problem List Review Problem List Initiated/Reviewed/Updated: Yes - My Orders Last 24 Hours: My Active Orders 01/11/20 10:30 Communication Order [RC] ASDIRECTED - Plan Plan:: Assessment/Plan: #1. Small bowel obstruction secondary to adhesions. WBC and HB stable. He is having decreased abd. pain. He is not as good as yesterday and has a pic line. K was 3.3 this will be corrected by the pic line fluid nutrition. He is not passing gas yet. He does, however. want to eat. #2. History of diarrhea: Chronic #3. Prostate cancer. Treatment followed by an oncologist #4. Hypokalemia: improved with supplementation.
--- NOTE | 2020-01-10 13:31 | CR ---
Abdomen 2V AP Flat Upright CLINICAL HISTORY: Ileus FINDINGS: NG tube remains in place. There is persistent dilatation of small bowel with scattered air-fluid levels. This is similar to the prior study. There is some gas in the colon similar to prior study. IMPRESSION: Persistent small bowel distention with some gas in the colon. NG tube remains in place. No significant change from recent prior study.
--- NOTE | 2020-01-10 15:09 | PN ---
DATE OF SERVICE: 01/10/2020 SUBJECTIVE: The patient is doing well. Pain has been controlled. No nausea, vomiting, shortness of breath, or chest pain. NG output is still high. OBJECTIVE: VITAL SIGNS: Temperature 98.4, blood pressure 110/69, pulse 89, respirations 16, 97% on room air. CARDIOVASCULAR: Regular rhythm and rate. RESPIRATORY: Lungs clear to auscultation bilaterally. ABDOMEN: Dressing intact. Abdomen nondistended. LABORATORY RESULTS: Show normal white count, hemoglobin 11.4. Sodium is high at 151. ASSESSMENT: Status post lysis of adhesions. PLAN: 1. GI: We will await GI activity. We will start on TPN as anticipating ileus condition. 2. Infectious Disease: White count is normal. No fever. 3. Pain Management: We will continue same pain management plan at this time. 4. Hypernatremia: We will change to D5 water and continue to address the hypernatremia with adjusting of the TPN starting today/tomorrow. 5. Prophylaxis: Remains on Lovenox and sequential compression devices along with ambulation. Sundar Calix MD /[id number]
[2020-01-10] MEDS: 1: AA 5%/Calcium/D15W/Lytes 1,000 ML with MVI, Adult with Vitamin K 10 ML, Chromium/Copp IV SCH ×3 (15:10)
[2020-01-10] MEDS ORDERED: Fat Emulsion 100 ML IV ONE (16:00)
[2020-01-11] MEDS: 1: AA 5%/Calcium/D15W/Lytes 1,000 ML with MVI, Adult with Vitamin K 10 ML, Chromium/Copp IV SCH ×6 (03:14→15:44)
[2020-01-11] MEDS ORDERED: Digoxin 500 MCG/2 ML Amp IVPUSH ONE ×2 (04:08→04:47)
[2020-01-11] MEDS: Dextrose 5% in Water 1,000 ML IV SCH (05:47)
[2020-01-11] MEDS ORDERED: fentaNYL 100 MCG/2 ML SDV IVPUSH PRN (08:48)
[2020-01-11] MEDS ORDERED: Furosemide 20 MG/2 ML VIAL IVPUSH ONE (09:00)
--- NOTE | 2020-01-11 10:24 | PN ---
DATE OF SERVICE: 01/11/2020 SUBJECTIVE: The patient doing very well. Pain is well controlled. No nausea, vomiting, shortness of breath, or chest pain. The patient is having multiple bowel movements. OBJECTIVE: VITAL SIGNS: Stable. CARDIOVASCULAR: Irregular rhythm and rate. RESPIRATORY: Lungs are clear to auscultation bilaterally. ABDOMEN: Incision healing well. ASSESSMENT: Status post exploratory laparotomy. PLAN: We will remove the NG tube today. Start him on clear liquid diet. We will continue his TPN to be probably discontinued tomorrow. Continue Lovenox. Switch his INVESTIGATION MANAGER to discontinue and p.o. pain medications and saline lock his IV. Sundar Calix MD /[id number]
[2020-01-11] MEDS: Enoxaparin 40 MG/0.4 ML Syringe SUBCUT SCH (10:51)
[2020-01-11] MEDS ORDERED: Potassium Chloride 20 MEQ Tab.ER PO ONE (12:40)
--- NOTE | 2020-01-11 12:47 | PCM.PN ---
- General Info Date of Service: 01/11/20 Functional Status: Reports: Pain Controlled - Review of Systems General: Reports: Weakness HEENT: Reports: No Symptoms Pulmonary: Reports: No Symptoms Cardiovascular: Reports: No Symptoms Gastrointestinal: Reports: Abdominal Pain Genitourinary: Reports: No Symptoms Musculoskeletal: Reports: No Symptoms Neurological: Reports: No Symptoms, Confusion, Dizziness, Headache, Numbness, Paresthesia, Pre-Existing Deficit, Seizure, Syncope, Tingling, Tremors, Trouble Speaking, Difficulty Walking, Weakness, Change in Speech, Gait Disturbance, Other Psychiatric: Reports: No Symptoms - Patient Data Vitals - Most Recent: Last Vital Signs Temp 98.2 F 01/11/20 11:22 Pulse 91 01/11/20 11:22 Resp 24 H 01/11/20 11:22 BP 90/58 L 01/11/20 11:32 Pulse Ox 94 L 01/11/20 11:22 Weight - Most Recent: 135 lb 0.001 oz I&O - Last 24 Hours: Intake & Output 01/10/20 01/11/20 01/11/20 22:59 06:59 14:59 Intake Total 1403 2478 261 Output Total 100 400 725 Balance 1303 2078 -464 Lab Results Last 24 Hours: Laboratory Results - last 24 hr 01/10/20 01/11/20 01/11/20 Range/Units 18:00 00:00 05:58 Sodium 140 (140-148) mmol/L Potassium 3.0 L (3.6-5.2) mmol/L Chloride 108 (100-108) mmol/L Carbon Dioxide 25 (21-32) mmol/L Anion Gap 10.0 (5.0-14.0) mmol/L BUN 13 (7-18) mg/dL Creatinine 0.5 L (0.8-1.3) mg/dL Est Cr Clr Drug Dosing 98.66 mL/min Estimated GFR (MDRD) > 60 (>60) Glucose 150 H (74-106) mg/dL POC Glucose 156 H 154 H (74-106) MG/DL Calcium 7.5 L (8.5-10.1) mg/dL Phosphorus 2.2 L (2.5-4.9) mg/dL Magnesium 1.8 D (1.8-2.4) mg/dL Triglycerides (15-150) mg/dL 01/11/20 01/11/20 01/11/20 Range/Units 05:58 05:58 12:00 Sodium (140-148) mmol/L Potassium (3.6-5.2) mmol/L Chloride (100-108) mmol/L Carbon Dioxide (21-32) mmol/L Anion Gap (5.0-14.0) mmol/L BUN (7-18) mg/dL Creatinine (0.8-1.3) mg/dL Est Cr Clr Drug Dosing mL/min Estimated GFR (MDRD) (>60) Glucose (74-106) mg/dL POC Glucose 152 H 131 H (74-106) MG/DL Calcium (8.5-10.1) mg/dL Phosphorus (2.5-4.9) mg/dL Magnesium (1.8-2.4) mg/dL Triglycerides 50 (15-150) mg/dL Med Orders - Current: Current Medications Hydrocodone Bitart/Acetaminophen ([place] 325-5 Mg) 1 - 2 tab PO Q4H PRN PRN Reason: Abdominal Pain Digoxin (Lanoxin) 250 mcg IVPUSH DAILY@1300 [facility] Diphenhydramine HCl (Benadryl) 25 mg IVPUSH Q6H PRN PRN Reason: Itching Last Admin: 01/08/20 01:55 Dose: 25 mg Documented by: Diphenhydramine HCl (Benadryl) 25 mg PO Q6H PRN PRN Reason: Itching Enoxaparin Sodium (Lovenox) 40 mg SUBCUT DAILY [facility] Last Admin: 01/11/20 10:51 Dose: 40 mg Documented by: Fentanyl (Sublimaze) 10 - 30 mcg IVPUSH Q1H PRN PRN Reason: Pain (severe 7-10) Multivitamins/Minerals 10 ml/Chromium/Copper/Manganese/Seleni/Zn 1 ml/ Amino Ac/Electrol/Dextrose/Calcium 1,011 mls @ 82 mls/hr IV .BY DURATION [facility] Stop: 01/12/20 12:00 Last Admin: 01/10/20 15:10 Dose: 82 mls/hr Documented by: Amino Ac/Electrol/Dextrose/Calcium (Clinimix E 15) 1,000 mls @ 82 mls/hr IV .BY DURATION [facility] Stop: 01/12/20 12:00 Last Admin: 01/11/20 03:14 Dose: 82 mls/hr Documented by: Ondansetron HCl (Zofran) 4 mg IV Q4H PRN PRN Reason: Nausea/Vomiting Last Admin: 01/07/20 05:58 Dose: 4 mg Documented by: Potassium Chloride (Klor-Con M20) 40 meq PO ONETIME ONE Stop: 01/11/20 12:41 Psyllium [place] (Metamucil Sugar Free) 1 pkt PO BID [facility] Sodium Chloride (Saline Flush) 10 ml FLUSH ASDIRECTED PRN PRN Reason: Keep Vein Open Last Admin: 01/03/20 16:58 Dose: 10 ml Documented by: Discontinued Medications Bupivacaine HCl (Marcaine 0.5%) Confirm Administered Dose 50 ml .ROUTE .STK-MED ONE Stop: 01/07/20 07:53 Bupivacaine HCl/Epinephrine Bitart ([place] 0.5%/Epinephrine 1:200,000) Confirm Administered Dose 50 ml .ROUTE .STK-MED ONE Stop: 01/07/20 07:59 Bupivacaine HCl/Epinephrine Bitart (Marcaine 0.5%/Epinephrine 1:200,000) Confirm Administered Dose 50 ml .ROUTE .STK-MED ONE Stop: 01/07/20 08:25 Ropivacaine 30 ml/Dexamethasone 8 mg/Epinephrine HCl 0.4 mg/ Sodium Chloride 47.6 ml 0 ml NERVRT ASDIRECTED [facility] Last Admin: 01/07/20 09:03 Dose: 80 syringe Documented by: Dexamethasone (Dexamethasone) Confirm Administered Dose 4 mg .ROUTE .STK-MED ONE Stop: 01/07/20 08:17 Digoxin (Lanoxin) 500 mcg IVPUSH ONETIME ONE Stop: 01/11/20 04:09 Last Admin: 01/11/20 04:26 Dose: 500 mcg Documented by: Fentanyl (Sublimaze) Confirm Administered Dose 250 mcg .ROUTE .STK-MED ONE Stop: 01/07/20 08:18 Fentanyl Citrate (Fentanyl In Ns 20 Mcg/Ml 30 Ml Construction Management Instructor) 0 mcg IV ASDIRECTED PRN; Protocol PRN Reason: Pain Last Admin: 01/10/20 11:15 Dose: 600 mcg Documented by: Furosemide (Lasix) 20 mg IVPUSH ONETIME ONE Stop: 01/11/20 09:01 Last Admin: 01/11/20 08:36 Dose: 20 mg Documented by: Glycopyrrolate (Robinul) Confirm Administered Dose 1 mg .ROUTE .STK-MED ONE Stop: 01/07/20 08:17 Hydromorphone HCl (Dilaudid Construction Management Instructor 15 Mg In Ns 30 Ml) 0 mg IV ASDIRECTED PRN; Protocol PRN Reason: PAIN Last Admin: 01/03/20 17:32 Dose: 15 mg Documented by: Hydromorphone HCl (Dilaudid) 0.5 mg IVPUSH Q2H PRN PRN Reason: Pain Last Admin: 01/07/20 05:51 Dose: 0.5 mg Documented by: Sodium Chloride (Normal Saline) 80 mls @ 3 mls/sec IV ASDIRECTED [facility] Stop: 01/03/20 16:31 Last Admin: 01/03/20 16:58 Dose: 3 mls/sec Documented by: Dextrose/Sodium Chloride (Dextrose 5%-Normal Saline) 1,000 mls @ 125 mls/hr IV ASDIRECTED [facility] Last Admin: 01/06/20 02:24 Dose: 125 mls/hr Documented by: Potassium Chloride/Dextrose/Sod Cl (D5 Ns With 20 Meq Kcl) 1,000 mls @ 125 mls/hr IV ASDIRECTED [facility] Last Admin: 01/10/20 03:36 Dose: 125 mls/hr Documented by: Sodium Chloride (Normal Saline) 71 mls @ 3 mls/sec IV ASDIRECTED [facility] Stop: 01/06/20 10:31 Last Admin: 01/06/20 10:44 Dose: 3 mls/sec Documented by: Cefazolin Sodium/Dextrose 2 gm (/ Premix) 50 mls @ 100 mls/hr IV ONCALL ONE Stop: 01/07/20 08:59 Last Admin: 01/07/20 09:03 Dose: 100 mls/hr Documented by: Dextrose/Water (Dextrose 5% In Water) 1,000 mls @ 125 mls/hr IV ASDIRECTED [facility] Last Admin: 01/11/20 05:47 Dose: 125 mls/hr Documented by: Fat Emulsion Intravenous (Intralipid 20%) 100 mls @ 8.4 mls/hr IV ONETIME ONE Stop: 01/11/20 03:54 Last Admin: 01/10/20 15:32 Dose: 8.4 mls/hr Documented by: Iopamidol (Isovue-300 (61%)) 100 ml IV . DIRECTED [facility] Stop: 01/03/20 16:31 Last Admin: 01/03/20 16:58 Dose: 100 ml Documented by: Iopamidol (Isovue-300 (61%)) 50 ml PO ASDIRECTED ONE Stop: 01/06/20 09:07 Last Admin: 01/06/20 09:21 Dose: 30 ml Documented by: Iopamidol (Isovue-300 (61%)) 92 ml IV ONETIME ONE Stop: 01/06/20 10:17 Last Admin: 01/06/20 10:44 Dose: 92 ml Documented by: Lactulose (Chronulac) 30 gm NGTUBE BID [facility] Last Admin: 01/10/20 20:39 Dose: Not Given Documented by: Lidocaine HCl (Xylocaine 2% Jelly) 10 ml MUCMEM ONETIME ONE Stop: 01/04/20 12:41 Last Admin: 01/04/20 13:15 Dose: 10 ml Documented by: Naloxone HCl (Narcan) 0.1 mg IVPUSH Q3M PRN PRN Reason: Respiratory Depression Naloxone HCl (Narcan) 0.1 mg IV ASDIRECTED PRN PRN Reason: decreased respiratory rate Neostigmine Methylsulfate (Neostigmine) Confirm Administered Dose 5 mg .ROUTE .STK-MED ONE Stop: 01/07/20 08:17 Ondansetron HCl (Zofran) 4 mg IV Q4H PRN PRN Reason: Nausea/Vomiting Ondansetron HCl (Zofran) Confirm Administered Dose 4 mg .ROUTE .STK-MED ONE Stop: 01/07/20 08:17 Propofol (Diprivan 20 Ml) Confirm Administered Dose 200 mg .ROUTE .STK-MED ONE Stop: 01/07/20 08:17 Rocuronium [place] (Zemuron) Confirm Administered Dose 50 mg .ROUTE .STK-MED ONE Stop: 01/07/20 08:17 Sodium Chloride (Saline Flush) 10 ml FLUSH ONETIME ONE Stop: 01/06/20 10:17 Last Admin: 01/06/20 17:31 Dose: Not Given Documented by: Succinylcholine Chloride (Quelicin) Confirm Administered Dose 200 mg .ROUTE .STK-MED ONE Stop: 01/07/20 08:17 - Exam General: Alert, Oriented HEENT: Pupils Equal, Pupils Reactive, EOMI, Mucous Membr. Moist/[place] Neck: Supple Lungs: Clear to Auscultation, Normal Respiratory Effort Cardiovascular: Irregular Rhythm GI/Abdominal Exam: Soft, Non-Tender, No Organomegaly, No Abnormal Bruit, No Mass, Pelvis Stable Extremities: Normal Inspection, Normal Range of Motion, Non-Tender, No Pedal Edema, Normal Capillary Refill Peripheral Pulses: 1+: Radial (L), Radial (R) Skin: Warm, Dry, Intact Sepsis Event Note - Evaluation Sepsis Screening Result: Sepsis Risk - Focused Exam Vital Signs: Vital Signs Temp Pulse Pulse Resp BP BP Pulse Ox 01/11/20 11:32 90/58 L 01/11/20 11:25 85/55 L 01/11/20 11:22 98.2 F 91 24 H 94 L 01/11/20 07:30 97.4 F 111 H 22 H 110/59 L 97 01/11/20 04:26 144 H 01/11/20 04:05 114/67 01/11/20 03:32 98.6 F 87 18 106/66 98 - Problem List Review Problem List Initiated/Reviewed/Updated: Yes - My Orders Last 24 Hours: My Active Orders 01/11/20 04:33 Cardiac Monitoring [RC] .As Directed 01/11/20 10:30 Communication Order [RC] ASDIRECTED 01/11/20 12:40 Potassium Chloride [Klor-Con M20] 40 meq PO ONETIME ONE 01/11/20 13:00 Digoxin [Lanoxin] 250 mcg IVPUSH DAILY@1300 01/11/20 18:00 POTASSIUM,K [CHEM] Routine - Plan Plan:: Assessment/Plan: #1. Small bowel obstruction secondary to adhesions. He is having decreased abd. pain. K was 3.0 will give oral supplementation. He is on clear liquids presently. #2. History of diarrhea: Chronic #3. Prostate cancer. Treatment followed by an oncologist #4. Hypokalemia: oral meds pending. #5. Atrial fib with tachycardia. Started Digoxin and also gave Lasix as he was fluid overloaded.
[2020-01-11] MEDS: Psyllium Husk Powder Sugar Free 5.85 GM Packet PO SCH ×2 (12:53→22:15)
[2020-01-11] MEDS ORDERED: Digoxin 500 MCG/2 ML Amp IVPUSH SCH (13:00)
[2020-01-12] MEDS: 1: AA 5%/Calcium/D15W/Lytes 1,000 ML with MVI, Adult with Vitamin K 10 ML, Chromium/Copp IV SCH ×3 (03:11)
[2020-01-12] MEDS: Psyllium Husk Powder Sugar Free 5.85 GM Packet PO SCH (09:59)
[2020-01-12] MEDS: Enoxaparin 40 MG/0.4 ML Syringe SUBCUT SCH (09:59)
--- NOTE | 2020-01-12 12:27 | PCM.PN ---
- General Info Date of Service: 01/12/20 Functional Status: Reports: Pain Controlled - Review of Systems General: Reports: Weakness HEENT: Reports: No Symptoms Pulmonary: Reports: No Symptoms Cardiovascular: Reports: No Symptoms Gastrointestinal: Reports: No Symptoms Genitourinary: Reports: No Symptoms Musculoskeletal: Reports: No Symptoms Skin: Reports: No Symptoms Neurological: Reports: No Symptoms Psychiatric: Reports: No Symptoms - Patient Data Vitals - Most Recent: Last Vital Signs Temp 98.6 F 01/12/20 11:15 Pulse 72 01/12/20 11:15 Resp 24 H 01/12/20 11:15 BP 93/61 01/12/20 11:15 Pulse Ox 97 01/12/20 11:15 Weight - Most Recent: 135 lb 0.001 oz I&O - Last 24 Hours: Intake & Output 01/11/20 01/12/20 01/12/20 22:59 06:59 14:59 Intake Total 1089 938 240 Output Total 400 200 300 Balance 689 738 -60 Lab Results Last 24 Hours: Laboratory Results - last 24 hr 01/11/20 01/11/20 01/12/20 Range/Units 18:00 18:15 00:00 Sodium (140-148) mmol/L Potassium 3.2 L (3.6-5.2) mmol/L Chloride (100-108) mmol/L Carbon Dioxide (21-32) mmol/L Anion Gap (5.0-14.0) mmol/L BUN (7-18) mg/dL Creatinine (0.8-1.3) mg/dL Est Cr Clr Drug Dosing mL/min Estimated GFR (MDRD) (>60) Glucose (74-106) mg/dL POC Glucose 118 H 115 H (74-106) MG/DL Calcium (8.5-10.1) mg/dL Phosphorus (2.5-4.9) mg/dL Magnesium (1.8-2.4) mg/dL 01/12/20 01/12/20 01/12/20 Range/Units 04:30 05:28 12:00 Sodium 141 (140-148) mmol/L Potassium 3.2 L (3.6-5.2) mmol/L Chloride 107 (100-108) mmol/L Carbon Dioxide 29 (21-32) mmol/L Anion Gap 8.2 (5.0-14.0) mmol/L BUN 17 (7-18) mg/dL Creatinine 0.8 D (0.8-1.3) mg/dL Est Cr Clr Drug Dosing 61.66 mL/min Estimated GFR (MDRD) > 60 (>60) Glucose 118 H (74-106) mg/dL POC Glucose 118 H 122 H (74-106) MG/DL Calcium 7.5 L (8.5-10.1) mg/dL Phosphorus 2.9 (2.5-4.9) mg/dL Magnesium 1.9 (1.8-2.4) mg/dL Med Orders - Current: Current Medications Hydrocodone Bitart/Acetaminophen ([place] 325-5 Mg) 1 - 2 tab PO Q4H PRN PRN Reason: Abdominal Pain Digoxin (Lanoxin) 250 mcg IVPUSH DAILY@1300 [facility], [facility] Last Admin: 01/11/20 13:06 Dose: 250 mcg Documented by: Diphenhydramine HCl (Benadryl) 25 mg IVPUSH Q6H PRN PRN Reason: Itching Last Admin: 01/08/20 01:55 Dose: 25 mg Documented by: Diphenhydramine HCl (Benadryl) 25 mg PO Q6H PRN PRN Reason: Itching Enoxaparin Sodium (Lovenox) 40 mg SUBCUT DAILY [facility], [facility] Last Admin: 01/12/20 09:59 Dose: 40 mg Documented by: Fentanyl (Sublimaze) 10 - 30 mcg IVPUSH Q1H PRN PRN Reason: Pain (severe 7-10) Ondansetron HCl (Zofran) 4 mg IV Q4H PRN PRN Reason: Nausea/Vomiting Last Admin: 01/07/20 05:58 Dose: 4 mg Documented by: Psyllium Husk Powder (Pom) 0 each PO BID [facility], [facility] Potassium Chloride (Klor-Con M20) 40 meq PO BID [facility], [facility] Sodium Chloride (Saline Flush) 10 ml FLUSH ASDIRECTED PRN PRN Reason: Keep Vein Open Last Admin: 01/03/20 16:58 Dose: 10 ml Documented by: Discontinued Medications Bupivacaine HCl (Marcaine 0.5%) Confirm Administered Dose 50 ml .ROUTE .STK-MED ONE Stop: 01/07/20 07:53 Bupivacaine HCl/Epinephrine Bitart ([place] 0.5%/Epinephrine 1:200,000) Confirm Administered Dose 50 ml .ROUTE .STK-MED ONE Stop: 01/07/20 07:59 Bupivacaine HCl/Epinephrine Bitart ([place] 0.5%/Epinephrine 1:200,000) Confirm Administered Dose 50 ml .ROUTE .STK-MED ONE Stop: 01/07/20 08:25 Ropivacaine 30 ml/Dexamethasone 8 mg/Epinephrine HCl 0.4 mg/ Sodium Chloride 47.6 ml 0 ml NERVRT ASDIRECTED [facility] Last Admin: 01/07/20 09:03 Dose: 80 syringe Documented by: Dexamethasone (Dexamethasone) Confirm Administered Dose 4 mg .ROUTE .STK-MED ONE Stop: 01/07/20 08:17 Digoxin (Lanoxin) 500 mcg IVPUSH ONETIME ONE Stop: 01/11/20 04:09 Last Admin: 01/11/20 04:26 Dose: 500 mcg Documented by: Fentanyl (Sublimaze) Confirm Administered Dose 250 mcg .ROUTE .ST-MED ONE Stop: 01/07/20 08:18 Fentanyl Citrate (Fentanyl In Ns 20 Mcg/Ml 30 Ml Geriatric Nursing Assistant) 0 mcg IV ASDIRECTED PRN; Protocol PRN Reason: Pain Last Admin: 01/10/20 11:15 Dose: 600 mcg Documented by: Furosemide (Lasix) 20 mg IVPUSH ONETIME ONE Stop: 01/11/20 09:01 Last Admin: 01/11/20 08:36 Dose: 20 mg Documented by: Glycopyrrolate (Robinul) Confirm Administered Dose 1 mg .ROUTE .STK-MED ONE Stop: 01/07/20 08:17 Hydromorphone HCl (Dilaudid Geriatric Nursing Assistant 15 Mg In Ns 30 Ml) 0 mg IV ASDIRECTED PRN; Protocol PRN Reason: PAIN Last Admin: 01/03/20 17:32 Dose: 15 mg Documented by: Hydromorphone HCl (Dilaudid) 0.5 mg IVPUSH Q2H PRN PRN Reason: Pain Last Admin: 01/07/20 05:51 Dose: 0.5 mg Documented by: Sodium Chloride (Normal Saline) 80 mls @ 3 mls/sec IV ASDIRECTED [facility] Stop: 01/03/20 16:31 Last Admin: 01/03/20 16:58 Dose: 3 mls/sec Documented by: Dextrose/Sodium Chloride (Dextrose 5%-Normal Saline) 1,000 mls @ 125 mls/hr IV ASDIRECTED [facility], [facility] Last Admin: 01/06/20 02:24 Dose: 125 mls/hr Documented by: Potassium Chloride/Dextrose/Sod Cl (D5 Ns With 20 Meq Kcl) 1,000 mls @ 125 mls/hr IV ASDIRECTED [facility], [facility] Last Admin: 01/10/20 03:36 Dose: 125 mls/hr Documented by: Sodium Chloride (Normal Saline) 71 mls @ 3 mls/sec IV ASDIRECTED [facility], [facility]1983 Stop: 01/06/20 10:31 Last Admin: 01/06/20 10:44 Dose: 3 mls/sec Documented by: Cefazolin Sodium/Dextrose 2 gm (/ Premix) 50 mls @ 100 mls/hr IV ONCALL ONE Stop: 01/07/20 08:59 Last Admin: 01/07/20 09:03 Dose: 100 mls/hr Documented by: Dextrose/Water (Dextrose 5% In Water) 1,000 mls @ 125 mls/hr IV ASDIRECTED [facility], [facility] Last Admin: 01/11/20 05:47 Dose: 125 mls/hr Documented by: Multivitamins/Minerals 10 ml/Chromium/Copper/Manganese/Seleni/Zn 1 ml/ Amino Ac/Electrol/Dextrose/Calcium 1,011 mls @ 82 mls/hr IV .BY DURATION [facility], [facility]1983 Stop: 01/12/20 12:00 Last Admin: 01/11/20 15:44 Dose: 82 mls/hr Documented by: Amino Ac/Electrol/Dextrose/Calcium (Clinimix E 5/15) 1,000 mls @ 82 mls/hr IV .BY DURATION [facility], [facility]1983 Stop: 01/12/20 12:00 Last Admin: 01/12/20 03:11 Dose: 82 mls/hr Documented by: Fat Emulsion Intravenous (Intralipid 20%) 100 mls @ 8.4 mls/hr IV ONETIME ONE Stop: 01/11/20 03:54 Last Admin: 01/10/20 15:32 Dose: 8.4 mls/hr Documented by: Iopamidol (Isovue-300 (61%)) 100 ml IV . DIRECTED [facility], [facility]–1983 Stop: 01/03/20 16:31 Last Admin: 01/03/20 16:58 Dose: 100 ml Documented by: Iopamidol (Isovue-300 (61%)) 50 ml PO ASDIRECTED ONE Stop: 01/06/20 09:07 Last Admin: 01/06/20 09:21 Dose: 30 ml Documented by: Iopamidol (Isovue-300 (61%)) 92 ml IV ONETIME ONE Stop: 01/06/20 10:17 Last Admin: 01/06/20 10:44 Dose: 92 ml Documented by: Lactulose (Chronulac) 30 gm NGTUBE BID [facility], [facility]1983 Last Admin: 01/10/20 20:39 Dose: Not Given Documented by: Lidocaine HCl (Xylocaine 2% Jelly) 10 ml MUCMEM ONETIME ONE Stop: 01/04/20 12:41 Last Admin: 01/04/20 13:15 Dose: 10 ml Documented by: Naloxone HCl (Narcan) 0.1 mg IVPUSH Q3M PRN PRN Reason: Respiratory Depression Naloxone HCl (Narcan) 0.1 mg IV ASDIRECTED PRN PRN Reason: decreased respiratory rate Neostigmine Methylsulfate (Neostigmine) Confirm Administered Dose 5 mg .ROUTE .STK-MED ONE Stop: 01/07/20 08:17 Ondansetron HCl (Zofran) 4 mg IV Q4H PRN PRN Reason: Nausea/Vomiting Ondansetron HCl (Zofran) Confirm Administered Dose 4 mg .ROUTE .STK-MED ONE Stop: 01/07/20 08:17 Potassium Chloride (Klor-Con M20) 40 meq PO ONETIME ONE Stop: 01/11/20 12:41 Last Admin: 01/11/20 12:53 Dose: 40 meq Documented by: Propofol (Diprivan 20 Ml) Confirm Administered Dose 200 mg .ROUTE .STK-MED ONE Stop: 01/07/20 08:17 Psyllium Husk (Metamucil Sugar Free) 1 pkt PO BID [facility], [facility] Last Admin: 01/12/20 09:59 Dose: 1 pkt Documented by: Rocuronium [place] (Zemuron) Confirm Administered Dose 50 mg .ROUTE .STK-MED ONE Stop: 01/07/20 08:17 Sodium Chloride (Saline Flush) 10 ml FLUSH ONETIME ONE Stop: 01/06/20 10:17 Last Admin: 01/06/20 17:31 Dose: Not Given Documented by: Succinylcholine Chloride (Quelicin) Confirm Administered Dose 200 mg .ROUTE .STK-MED ONE Stop: 01/07/20 08:17 - Exam General: Alert, Oriented HEENT: Pupils Equal, Pupils Reactive, EOMI, Mucous Membr. Moist/[place] Neck: Supple Lungs: Clear to Auscultation, Normal Respiratory Effort Cardiovascular: Irregular Rhythm GI/Abdominal Exam: Normal Bowel Sounds, Soft, No Organomegaly, No Distention, No Abnormal Bruit, No Mass, Pelvis Stable Peripheral Pulses: 1+: Radial (L), Radial (R) Skin: Warm, Dry, Intact Psy/Mental Status: Alert, Normal Affect, Normal Mood Sepsis Event Note - Evaluation Sepsis Screening Result: No Definite Risk - Focused Exam Vital Signs: Vital Signs Temp Pulse Resp BP Pulse Ox 01/12/20 11:15 98.6 F 72 24 H 93/61 97 01/12/20 08:00 14 01/12/20 07:53 98.2 F 70 24 H 106/66 98 01/12/20 03:12 97.3 F 77 18 99/61 97 01/12/20 01:00 98 - Problem List Review Problem List Initiated/Reviewed/Updated: Yes - My Orders Last 24 Hours: My Active Orders 01/11/20 13:00 Digoxin [Lanoxin] 250 mcg IVPUSH DAILY@1300 01/12/20 12:30 Potassium Chloride [Klor-Con M20] 40 meq PO BID 01/12/20 Dinner Soft Diet [DIET] - Plan Plan:: Assessment/Plan: #1. Small bowel obstruction secondary to adhesions. K was 3.2. DWill increase K to 40 bid. will give oral supplementation. He is on soft diet starting today. #2. History of diarrhea: Chronic #3. Prostate cancer. Treatment followed by an oncologist #4. Hypokalemia: oral meds pending. #5. Atrial fib with tachycardia. Started Digoxin and also gave Lasix as he was fluid overloaded.
[2020-01-12] MEDS ORDERED: Digoxin 125 MCG Tab PO SCH (13:00)
[2020-01-12] MEDS ORDERED: Furosemide 20 MG Tab PO ONE (15:00)
[2020-01-12] MEDS: Potassium Chloride 20 MEQ Tab.ER PO SCH ×3 (15:20→20:14)
[2020-01-12] MEDS: Acetaminophen/HYDROcodone 325-5 MG Tab PO PRN (19:36)
[2020-01-12] MEDS: PSYLLIUM HUSK PO SCH ×2 (19:40→20:14)
[2020-01-12] MEDS: Sodium Chloride 0.9% 10 ML Syringe FLUSH PRN (20:36)
[2020-01-13] MEDS: Acetaminophen/HYDROcodone 325-5 MG Tab PO PRN ×2 (03:20→08:47)
[2020-01-13 11:55] VITALS: BP 104/64; PULSE 66
--- NOTE | 2020-01-13 17:06 | PCM.PN ---
- General Info Date of Service: 01/13/20 Functional Status: Reports: Pain Controlled - Review of Systems General: Reports: Weakness HEENT: Reports: No Symptoms Pulmonary: Reports: No Symptoms Cardiovascular: Reports: No Symptoms Gastrointestinal: Reports: Abdominal Pain Genitourinary: Reports: No Symptoms Musculoskeletal: Reports: No Symptoms Skin: Reports: No Symptoms Neurological: Reports: No Symptoms Psychiatric: Reports: No Symptoms - Patient Data Vitals - Most Recent: Last Vital Signs Temp 97.0 F 01/13/20 11:00 Pulse 66 01/13/20 11:00 Resp 18 01/13/20 11:00 BP 104/64 01/13/20 11:00 Pulse Ox 95 01/13/20 11:00 Weight - Most Recent: 153 lb I&O - Last 24 Hours: Intake & Output 01/13/20 01/13/20 01/13/20 06:59 14:59 22:59 Intake Total 400 300 Output Total 300 800 Balance 100 -500 Lab Results Last 24 Hours: Laboratory Results - last 24 hr 01/12/20 01/13/20 01/13/20 Range/Units 17:54 00:25 06:00 Sodium (140-148) mmol/L Potassium (3.6-5.2) mmol/L Chloride (100-108) mmol/L Carbon Dioxide (21-32) mmol/L Anion Gap (5.0-14.0) mmol/L BUN (7-18) mg/dL Creatinine (0.8-1.3) mg/dL Est Cr Clr Drug Dosing mL/min Estimated GFR (MDRD) (>60) Glucose (74-106) mg/dL POC Glucose 102 84 108 H (74-106) MG/DL Calcium (8.5-10.1) mg/dL Phosphorus (2.5-4.9) mg/dL Magnesium (1.8-2.4) mg/dL 01/13/20 Range/Units 06:09 Sodium 140 (140-148) mmol/L Potassium 4.1 (3.6-5.2) mmol/L Chloride 106 (100-108) mmol/L Carbon Dioxide 27 (21-32) mmol/L Anion Gap 7.5 (5.0-14.0) mmol/L BUN 16 (7-18) mg/dL Creatinine 0.7 L (0.8-1.3) mg/dL Est Cr Clr Drug Dosing 79.01 mL/min Estimated GFR (MDRD) > 60 (>60) Glucose 111 H (74-106) mg/dL POC Glucose (74-106) MG/DL Calcium 7.8 L (8.5-10.1) mg/dL Phosphorus 3.1 (2.5-4.9) mg/dL Magnesium 1.8 (1.8-2.4) mg/dL Med Orders - Current: Current Medications Discontinued Medications Hydrocodone Bitart/Acetaminophen ([place] 325-5 Mg) 1 - 2 tab PO Q4H PRN PRN Reason: Abdominal Pain Last Admin: 01/13/20 08:47 Dose: 1 tab Documented by: Bupivacaine HCl (Marcaine 0.5%) Confirm Administered Dose 50 ml .ROUTE .STK-MED ONE Stop: 01/07/20 07:53 Bupivacaine HCl/Epinephrine Bitart ([place] 0.5%/Epinephrine 1:200,000) Confirm Administered Dose 50 ml .ROUTE .STK-MED ONE Stop: 01/07/20 07:59 Bupivacaine HCl/Epinephrine Bitart ([place] 0.5%/Epinephrine 1:200,000) Confirm Administered Dose 50 ml .ROUTE .STK-MED ONE Stop: 01/07/20 08:25 Ropivacaine 30 ml/Dexamethasone 8 mg/Epinephrine HCl 0.4 mg/ Sodium Chloride 47.6 ml 0 ml NERVRT ASDIRECTED [facility] Last Admin: 01/07/20 09:03 Dose: 80 syringe Documented by: Dexamethasone (Dexamethasone) Confirm Administered Dose 4 mg .ROUTE .STK-MED ONE Stop: 01/07/20 08:17 Digoxin (Lanoxin) 500 mcg IVPUSH ONETIME ONE Stop: 01/11/20 04:09 Last Admin: 01/11/20 04:26 Dose: 500 mcg Documented by: Digoxin (Lanoxin) 250 mcg IVPUSH DAILY@1300 [facility] Last Admin: 01/11/20 13:06 Dose: 250 mcg Documented by: Digoxin (Lanoxin) 125 mcg PO DAILY@1300 [facility] Last Admin: 01/12/20 15:21 Dose: 125 mcg Documented by: Diphenhydramine HCl (Benadryl) 25 mg IVPUSH Q6H PRN PRN Reason: Itching Last Admin: 01/08/20 01:55 Dose: 25 mg Documented by: Diphenhydramine HCl (Benadryl) 25 mg PO Q6H PRN PRN Reason: Itching Enoxaparin Sodium (Lovenox) 40 mg SUBCUT DAILY [facility] Last Admin: 01/12/20 09:59 Dose: 40 mg Documented by: Fentanyl (Sublimaze) Confirm Administered Dose 250 mcg .ROUTE .STK-MED ONE Stop: 01/07/20 08:18 Fentanyl (Sublimaze) 10 - 30 mcg IVPUSH Q1H PRN PRN Reason: Pain (severe 7-10) Fentanyl Citrate (Fentanyl In Ns 20 Mcg/Ml 30 Ml Migratory Game Bird Biologist) 0 mcg IV ASDIRECTED PRN; Protocol PRN Reason: Pain Last Admin: 01/10/20 11:15 Dose: 600 mcg Documented by: Furosemide (Lasix) 20 mg IVPUSH ONETIME ONE Stop: 01/11/20 09:01 Last Admin: 01/11/20 08:36 Dose: 20 mg Documented by: Furosemide (Lasix) 20 mg PO ONETIME ONE Stop: 01/12/20 15:01 Last Admin: 01/12/20 16:14 Dose: 20 mg Documented by: Glycopyrrolate (Robinul) Confirm Administered Dose 1 mg .ROUTE .STK-MED ONE Stop: 01/07/20 08:17 Heparin Sodium (Porcine) (Heparin Lock Flush 100 Units/Ml) 500 units FLUSH ASDIRECTED PRN PRN Reason: IV Use Last Admin: 01/12/20 20:35 Dose: 500 units Documented by: Hydromorphone HCl (Dilaudid Migratory Game Bird Biologist 15 Mg In Ns 30 Ml) 0 mg IV ASDIRECTED PRN; Protocol PRN Reason: PAIN Last Admin: 01/03/20 17:32 Dose: 15 mg Documented by: Hydromorphone HCl (Dilaudid) 0.5 mg IVPUSH Q2H PRN PRN Reason: Pain Last Admin: 01/07/20 05:51 Dose: 0.5 mg Documented by: Sodium Chloride (Normal Saline) 80 mls @ 3 mls/sec IV ASDIRECTED [facility] Stop: 01/03/20 16:31 Last Admin: 01/03/20 16:58 Dose: 3 mls/sec Documented by: Dextrose/Sodium Chloride (Dextrose 5%-Normal Saline) 1,000 mls @ 125 mls/hr IV ASDIRECTED [facility] Last Admin: 01/06/20 02:24 Dose: 125 mls/hr Documented by: Potassium Chloride/Dextrose/Sod Cl (D5 Ns With 20 Meq Kcl) 1,000 mls @ 125 mls/hr IV ASDIRECTED [facility] Last Admin: 01/10/20 03:36 Dose: 125 mls/hr Documented by: Sodium Chloride (Normal Saline) 71 mls @ 3 mls/sec IV ASDIRECTED [place] Stop: 01/06/20 10:31 Last Admin: 01/06/20 10:44 Dose: 3 mls/sec Documented by: Cefazolin Sodium/Dextrose 2 gm (/ Premix) 50 mls @ 100 mls/hr IV ONCALL ONE Stop: 01/07/20 08:59 Last Admin: 01/07/20 09:03 Dose: 100 mls/hr Documented by: Dextrose/Water (Dextrose 5% In Water) 1,000 mls @ 125 mls/hr IV ASDIRECTED [facility] Last Admin: 01/11/20 05:47 Dose: 125 mls/hr Documented by: Multivitamins/Minerals 10 ml/Chromium/Copper/Manganese/Seleni/Zn 1 ml/ Amino Ac/Electrol/Dextrose/Calcium 1,011 mls @ 82 mls/hr IV .BY DURATION [facility] Stop: 01/12/20 12:00 Last Admin: 01/11/20 15:44 Dose: 82 mls/hr Documented by: Amino Ac/Electrol/Dextrose/Calcium (Clinimix E 5/15) 1,000 mls @ 82 mls/hr IV .BY DURATION [facility] Stop: 01/12/20 12:00 Last Admin: 01/12/20 03:11 Dose: 82 mls/hr Documented by: Fat Emulsion Intravenous (Intralipid 20%) 100 mls @ 8.4 mls/hr IV ONETIME ONE Stop: 01/11/20 03:54 Last Admin: 01/10/20 15:32 Dose: 8.4 mls/hr Documented by: Iopamidol (Isovue-300 (61%)) 100 ml IV . DIRECTED [facility] Stop: 01/03/20 16:31 Last Admin: 01/03/20 16:58 Dose: 100 ml Documented by: Iopamidol (Isovue-300 (61%)) 50 ml PO ASDIRECTED ONE Stop: 01/06/20 09:07 Last Admin: 01/06/20 09:21 Dose: 30 ml Documented by: Iopamidol (Isovue-300 (61%)) 92 ml IV ONETIME ONE Stop: 01/06/20 10:17 Last Admin: 01/06/20 10:44 Dose: 92 ml Documented by: Lactulose (Chronulac) 30 gm NGTUBE BID [facility] Last Admin: 01/10/20 20:39 Dose: Not Given Documented by: Lidocaine HCl (Xylocaine 2% Jelly) 10 ml MUCMEM ONETIME ONE Stop: 01/04/20 12:41 Last Admin: 01/04/20 13:15 Dose: 10 ml Documented by: Naloxone HCl (Narcan) 0.1 mg IVPUSH Q3M PRN PRN Reason: Respiratory Depression Naloxone HCl (Narcan) 0.1 mg IV ASDIRECTED PRN PRN Reason: decreased respiratory rate Neostigmine Methylsulfate (Neostigmine) Confirm Administered Dose 5 mg .ROUTE .STK-MED ONE Stop: 01/07/20 08:17 Ondansetron HCl (Zofran) 4 mg IV Q4H PRN PRN Reason: Nausea/Vomiting Ondansetron HCl (Zofran) 4 mg IV Q4H PRN PRN Reason: Nausea/Vomiting Last Admin: 01/07/20 05:58 Dose: 4 mg Documented by: Ondansetron HCl (Zofran) Confirm Administered Dose 4 mg .ROUTE .STK-MED ONE Stop: 01/07/20 08:17 Psyllium Husk Powder (Pom) 0 each PO BID [facility] Last Admin: 01/12/20 20:14 Dose: Not Given Documented by: Potassium Chloride (Klor-Con M20) 40 meq PO ONETIME ONE Stop: 01/11/20 12:41 Last Admin: 01/11/20 12:53 Dose: 40 meq Documented by: Potassium Chloride (Klor-Con M20) 40 meq PO BID [facility] Last Admin: 01/12/20 20:14 Dose: Not Given Documented by: Propofol (Diprivan 20 Ml) Confirm Administered Dose 200 mg .ROUTE .STK-MED ONE Stop: 01/07/20 08:17 Psyllium Husk (Metamucil Sugar Free) 1 pkt PO BID [facility] Last Admin: 01/12/20 09:59 Dose: 1 pkt Documented by: Rocuronium [place] (Zemuron) Confirm Administered Dose 50 mg .ROUTE .STK-MED ONE Stop: 01/07/20 08:17 Sodium Chloride (Saline Flush) 10 ml FLUSH ASDIRECTED PRN PRN Reason: Keep Vein Open Last Admin: 01/12/20 20:36 Dose: 10 ml Documented by: Sodium Chloride (Saline Flush) 10 ml FLUSH ONETIME ONE Stop: 01/06/20 10:17 Last Admin: 01/06/20 17:31 Dose: Not Given Documented by: Succinylcholine Chloride (Quelicin) Confirm Administered Dose 200 mg .ROUTE .STK-MED ONE Stop: 01/07/20 08:17 - Exam General: Alert, Oriented HEENT: Pupils Equal Neck: Supple Lungs: Clear to Auscultation, Normal Respiratory Effort Cardiovascular: Irregular Rhythm GI/Abdominal Exam: Normal Bowel Sounds, Soft, Non-Tender, No Organomegaly, No Distention, No Abnormal Bruit, No Mass, Pelvis Stable Extremities: Normal Inspection, Normal Range of Motion, Non-Tender, No Pedal Edema, Normal Capillary Refill Peripheral Pulses: 1+: Radial (L), Radial (R) Wound/Incisions: Healing Well Neurological: No New Focal Deficit Psy/Mental Status: Alert, Normal Affect, Normal Mood Sepsis Event Note - Evaluation Sepsis Screening Result: No Definite Risk - Focused Exam Vital Signs: Vital Signs Temp Pulse Resp BP Pulse Ox 01/13/20 11:00 97.0 F 66 18 104/64 95 01/13/20 07:46 97.0 F 70 18 112/68 98 01/13/20 07:33 99 - Problem List Review Problem List Initiated/Reviewed/Updated: Yes - Plan Plan:: Assessment/Plan: #1. Small bowel obstruction secondary to adhesions. K was 4.1. DWill increase K to 40 bid. will give oral supplementation. He is on soft diet starting today. #2. History of diarrhea: Chronic #3. Prostate cancer. Treatment followed by an oncologist #4. Hypokalemia: oral meds pending. #5. Atrial fib with tachycardia. Started Digoxin and also gave Lasix as he was fluid overloaded. BP 104/61 Will also start him on Xarelto 15mg.
--- NOTE | 2020-01-13 17:13 | PCM.DCSUM1 ---
Discharge Summary - Hospital Course Brief History: Admitted from home as he was having significant abdominal pain and unable to eat. 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 He was unable to eat for greater than 24 hours and the pain was severe. Diagnosis: Stroke: No Modified [place] Scale: No Symptoms at All Modified [place] Scale Score: 0 - Discharge Data Discharge Date: 01/13/20 Discharge Disposition: Home, Self-Care 01 Condition: Good - Referral to Home Health Primary Care Physician: Colin Camargo Sr, MD - Patient Summary/Data Operative Procedure(s) Performed: Procedures: #1. Exploratory laparotomy. #2. Lysis of adhesions. #3. Reduction of internal hernia Consults: Consultations 01/03/20 18:07 Consult to Physician [CONS] Routine Consulting Provider: Sundar Calix Call Completed to Consulting Physician: Yes Reason for Consult: SBO Person Notified: KAYLA Date Notified: 01/03/20 Special Instructions: ROSETTE stated her would call this evening. 01/09/20 10:41 Consult to Rn Case Manager Hospice [CONS] Routine Comment: Physician Instructions: Quantity: Reason for Consult: TPN orders 01/11/20 12:26 Consult to Physical Therapy [PT Evaluation and Treatment] [CONS] Routine Please Evaluate and Treat. PT Reason for Consult: Strengthening Special Instructions: post op This query below is only for informational purposes and is not editable. Admission Diagnosis/Problem: Ileus Hospital Course: After surgery, he did go into tachycardiac and went into atrial fibrillation. Digitalis was given and he was placed on Lovenox and is being sent home on Xarelto 15 mg daily - Patient Instructions Diet: Heart Healthy Diet Activity: As Tolerated - Discharge Plan *PRESCRIPTION DRUG MONITORING PROGRAM REVIEWED*: No *COPY OF PRESCRIPTION DRUG MONITORING REPORT IN PATIENT LUIS: No Home Medications: Home Meds Calcium Carbonate [Tums] 1 tab.chew PO ASDIRECTED PRN 06/27/16 [History] Psyllium with Sucrose [Metamucil] 1 each PO BID 01/11/20 [History] Potassium Chloride [Klor-Con M20] 40 meq PO BID tab.er 01/13/20 [Rx] Oxygen Therapy Mode: Room Air Patient Handouts: Ileus, Dehydration, Adult, [id number] - Discharge Summary/Plan Comment DC Time >30 min.: Yes Discharge Summary/Plan Comment: Assessment/Plan: #1. Small bowel obstruction secondary to adhesions. K was 4.1. DWill increase K to 40 bid. will give oral supplementation. He is on soft diet starting today. #2. History of diarrhea: Chronic #3. Prostate cancer. Treatment followed by an oncologist #4. Hypokalemia: oral meds pending. #5. Atrial fib with tachycardia. Started Digoxin and also gave Lasix as he was fluid overloaded. BP 104/61 Will also start him on Xarelto 15mg daily. - General Info Date of Service: 01/13/20 Functional Status: Reports: Pain Controlled - Review of Systems General: Reports: Weakness HEENT: Reports: No Symptoms Cardiovascular: Reports: No Symptoms Gastrointestinal: Reports: Abdominal Pain Genitourinary: Reports: No Symptoms Musculoskeletal: Reports: No Symptoms Skin: Reports: No Symptoms Neurological: Reports: No Symptoms Psychiatric: Reports: No Symptoms - Patient Data Vitals - Most Recent: Last Vital Signs Temp 97.0 F 01/13/20 11:00 Pulse 66 01/13/20 11:00 Resp 18 01/13/20 11:00 BP 104/64 01/13/20 11:00 Pulse Ox 95 01/13/20 11:00 Weight - Most Recent: 153 lb I&O - Last 24 hours: Intake & Output 01/13/20 01/13/20 01/13/20 06:59 14:59 22:59 Intake Total 400 300 Output Total 300 800 Balance 100 -500 Lab Results - Last 24 hrs: Laboratory Results - last 24 hr 01/12/20 01/13/20 01/13/20 Range/Units 17:54 00:25 06:00 Sodium (140-148) mmol/L Potassium (3.6-5.2) mmol/L Chloride (100-108) mmol/L Carbon Dioxide (21-32) mmol/L Anion Gap (5.0-14.0) mmol/L BUN (7-18) mg/dL Creatinine (0.8-1.3) mg/dL Est Cr Clr Drug Dosing mL/min Estimated GFR (MDRD) (>60) Glucose (74-106) mg/dL POC Glucose 102 84 108 H (74-106) MG/DL Calcium (8.5-10.1) mg/dL Phosphorus (2.5-4.9) mg/dL Magnesium (1.8-2.4) mg/dL 01/13/20 Range/Units 06:09 Sodium 140 (140-148) mmol/L Potassium 4.1 (3.6-5.2) mmol/L Chloride 106 (100-108) mmol/L Carbon Dioxide 27 (21-32) mmol/L Anion Gap 7.5 (5.0-14.0) mmol/L BUN 16 (7-18) mg/dL Creatinine 0.7 L (0.8-1.3) mg/dL Est Cr Clr Drug Dosing 79.01 mL/min Estimated GFR (MDRD) > 60 (>60) Glucose 111 H (74-106) mg/dL POC Glucose (74-106) MG/DL Calcium 7.8 L (8.5-10.1) mg/dL Phosphorus 3.1 (2.5-4.9) mg/dL Magnesium 1.8 (1.8-2.4) mg/dL Med Orders - Current: Current Medications Discontinued Medications Hydrocodone Bitart/Acetaminophen ([place] 325-5 Mg) 1 - 2 tab PO Q4H PRN PRN Reason: Abdominal Pain Last Admin: 01/13/20 08:47 Dose: 1 tab Documented by: Bupivacaine HCl (Marcaine 0.5%) Confirm Administered Dose 50 ml .ROUTE .STK-MED ONE Stop: 01/07/20 07:53 Bupivacaine HCl/Epinephrine Bitart (Marcaine 0.5%/Epinephrine 1:200,000) Confirm Administered Dose 50 ml .ROUTE .STK-MED ONE Stop: 01/07/20 07:59 Bupivacaine HCl/Epinephrine Bitart (Marcaine 0.5%/Epinephrine 1:200,000) Confirm Administered Dose 50 ml .ROUTE .STK-MED ONE Stop: 01/07/20 08:25 Ropivacaine 30 ml/Dexamethasone 8 mg/Epinephrine HCl 0.4 mg/ Sodium Chloride 47.6 ml 0 ml NERVRT ASDIRECTED COLBY Last Admin: 01/07/20 09:03 Dose: 80 syringe Documented by: Dexamethasone (Dexamethasone) Confirm Administered Dose 4 mg .ROUTE .STK-MED ONE Stop: 01/07/20 08:17 Digoxin (Lanoxin) 500 mcg IVPUSH ONETIME ONE Stop: 01/11/20 04:09 Last Admin: 01/11/20 04:26 Dose: 500 mcg Documented by: Digoxin (Lanoxin) 250 mcg IVPUSH DAILY@1300 COLBY Last Admin: 01/11/20 13:06 Dose: 250 mcg Documented by: Digoxin (Lanoxin) 125 mcg PO DAILY@1300 COLBY Last Admin: 01/12/20 15:21 Dose: 125 mcg Documented by: Diphenhydramine HCl (Benadryl) 25 mg IVPUSH Q6H PRN PRN Reason: Itching Last Admin: 01/08/20 01:55 Dose: 25 mg Documented by: Diphenhydramine HCl (Benadryl) 25 mg PO Q6H PRN PRN Reason: Itching Enoxaparin Sodium (Lovenox) 40 mg SUBCUT DAILY [facility] Last Admin: 01/12/20 09:59 Dose: 40 mg Documented by: Fentanyl (Sublimaze) Confirm Administered Dose 250 mcg .ROUTE .STK-MED ONE Stop: 01/07/20 08:18 Fentanyl (Sublimaze) 10 - 30 mcg IVPUSH Q1H PRN PRN Reason: Pain (severe 7-10) Fentanyl Citrate (Fentanyl In Ns 20 Mcg/Ml 30 Ml Chief Operator Hydroformer) 0 mcg IV ASDIRECTED PRN; Protocol PRN Reason: Pain Last Admin: 01/10/20 11:15 Dose: 600 mcg Documented by: Furosemide (Lasix) 20 mg IVPUSH ONETIME ONE Stop: 01/11/20 09:01 Last Admin: 01/11/20 08:36 Dose: 20 mg Documented by: Furosemide (Lasix) 20 mg PO ONETIME ONE Stop: 01/12/20 15:01 Last Admin: 01/12/20 16:14 Dose: 20 mg Documented by: Glycopyrrolate (Robinul) Confirm Administered Dose 1 mg .ROUTE .STK-MED ONE Stop: 01/07/20 08:17 Heparin Sodium (Porcine) (Heparin Lock Flush 100 Units/Ml) 500 units FLUSH ASDIRECTED PRN PRN Reason: IV Use Last Admin: 01/12/20 20:35 Dose: 500 units Documented by: Hydromorphone HCl (Dilaudid Chief Operator Hydroformer 15 Mg In Ns 30 Ml) 0 mg IV ASDIRECTED PRN; Protocol PRN Reason: PAIN Last Admin: 01/03/20 17:32 Dose: 15 mg Documented by: Hydromorphone HCl (Dilaudid) 0.5 mg IVPUSH Q2H PRN PRN Reason: Pain Last Admin: 01/07/20 05:51 Dose: 0.5 mg Documented by: Sodium Chloride (Normal Saline) 80 mls @ 3 mls/sec IV ASDIRECTED [facility] Stop: 01/03/20 16:31 Last Admin: 01/03/20 16:58 Dose: 3 mls/sec Documented by: Dextrose/Sodium Chloride (Dextrose 5%-Normal Saline) 1,000 mls @ 125 mls/hr IV ASDIRECTED [facility] Last Admin: 01/06/20 02:24 Dose: 125 mls/hr Documented by: Potassium Chloride/Dextrose/Sod Cl (D5 Ns With 20 Meq Kcl) 1,000 mls @ 125 mls/hr IV ASDIRECTED [facility] Last Admin: 01/10/20 03:36 Dose: 125 mls/hr Documented by: Sodium Chloride (Normal Saline) 71 mls @ 3 [facility]ls[facility] Stop: 01/06/20 10:31 Last Admin: 01/06/20 10:44 Dose: 3 mls/sec Documented by: Cefazolin Sodium/Dextrose 2 gm (/ Premix) 50 mls @ 100 mls/hr IV ONCALL ONE Stop: 01/07/20 08:59 Last Admin: 01/07/20 09:03 Dose: 100 mls/hr Documented by: Dextrose/Water (Dextrose 5% In Water) 1,000 mls @ 125 mls/hr IV ASDIRECTED [facility] Last Admin: 01/11/20 05:47 Dose: 125 mls/hr Documented by: Multivitamins/Minerals 10 ml/Chromium/Copper/Manganese/Seleni/Zn 1 ml/ Amino Ac/Electrol/Dextrose/Calcium 1,011 mls @ 82 mls/hr IV .BY DURATION [facility] Stop: 01/12/20 12:00 Last Admin: 01/11/20 15:44 Dose: 82 mls/hr Documented by: Amino Ac/Electrol/Dextrose/Calcium (Clinimix E 5/15) 1,000 mls @ 82 mls/hr IV .BY DURATION [facility] Stop: 01/12/20 12:00 Last Admin: 01/12/20 03:11 Dose: 82 mls/hr Documented by: Fat Emulsion Intravenous (Intralipid 20%) 100 mls @ 8.4 mls/hr IV ONETIME ONE Stop: 01/11/20 03:54 Last Admin: 01/10/20 15:32 Dose: 8.4 mls/hr Documented by: Iopamidol (Isovue-300 (61%)) 100 ml IV . DIRECTED [facility] Stop: 01/03/20 16:31 Last Admin: 01/03/20 16:58 Dose: 100 ml Documented by: Iopamidol (Isovue-300 (61%)) 50 ml PO ASDIRECTED ONE Stop: 01/06/20 09:07 Last Admin: 01/06/20 09:21 Dose: 30 ml Documented by: Iopamidol (Isovue-300 (61%)) 92 ml IV ONETIME ONE Stop: 01/06/20 10:17 Last Admin: 01/06/20 10:44 Dose: 92 ml Documented by: Lactulose (Chronulac) 30 gm NGTUBE BID [facility] Last Admin: 01/10/20 20:39 Dose: Not Given Documented by: Lidocaine HCl (Xylocaine 2% Jelly) 10 ml MUCMEM ONETIME ONE Stop: 01/04/20 12:41 Last Admin: 01/04/20 13:15 Dose: 10 ml Documented by: Naloxone HCl (Narcan) 0.1 mg IVPUSH Q3M PRN PRN Reason: Respiratory Depression Naloxone HCl (Narcan) 0.1 mg IV ASDIRECTED PRN PRN Reason: decreased respiratory rate Neostigmine Methylsulfate (Neostigmine) Confirm Administered Dose 5 mg .ROUTE .STK-MED ONE Stop: 01/07/20 08:17 Ondansetron HCl (Zofran) 4 mg IV Q4H PRN PRN Reason: Nausea/Vomiting Ondansetron HCl (Zofran) 4 mg IV Q4H PRN PRN Reason: Nausea/Vomiting Last Admin: 01/07/20 05:58 Dose: 4 mg Documented by: Ondansetron HCl (Zofran) Confirm Administered Dose 4 mg .ROUTE .STK-MED ONE Stop: 01/07/20 08:17 Psyllium Husk Powder (Pom) 0 each PO BID [facility] Last Admin: 01/12/20 20:14 Dose: Not Given Documented by: Potassium Chloride (Klor-Con M20) 40 meq PO ONETIME ONE Stop: 01/11/20 12:41 Last Admin: 01/11/20 12:53 Dose: 40 meq Documented by: Potassium Chloride (Klor-Con M20) 40 meq PO BID [facility] Last Admin: 01/12/20 20:14 Dose: Not Given Documented by: Propofol (Diprivan 20 Ml) Confirm Administered Dose 200 mg .ROUTE .STK-MED ONE Stop: 01/07/20 08:17 Psyllium Husk (Metamucil Sugar Free) 1 pkt PO BID [facility] Last Admin: 01/12/20 09:59 Dose: 1 pkt Documented by: Rocuronium [place] (Zemuron) Confirm Administered Dose 50 mg .ROUTE .STK-MED ONE Stop: 01/07/20 08:17 Sodium Chloride (Saline Flush) 10 ml FLUSH ASDIRECTED PRN PRN Reason: Keep Vein Open Last Admin: 01/12/20 20:36 Dose: 10 ml Documented by: Sodium Chloride (Saline Flush) 10 ml FLUSH ONETIME ONE Stop: 01/06/20 10:17 Last Admin: 01/06/20 17:31 Dose: Not Given Documented by: Succinylcholine Chloride (Quelicin) Confirm Administered Dose 200 mg .ROUTE .STK-MED ONE Stop: 01/07/20 08:17 - Exam General: Reports: Alert, Oriented HEENT: Reports: Pupils Equal, Pupils Reactive, EOMI, Mucous Membr. Moist/[place] Neck: Reports: Supple Lungs: Reports: Clear to Auscultation, Normal Respiratory Effort Cardiovascular: Reports: Irregular Rhythm GI/Abdominal Exam: Normal Bowel Sounds, Soft, Non-Tender, No Organomegaly, No Distention, No Abnormal Bruit, No Mass, Pelvis Stable Back Exam: Reports: Normal Inspection, Full Range of Motion Extremities: Normal Inspection, Normal Range of Motion, Non-Tender, No Pedal Edema, Normal Capillary Refill Skin: Reports: Warm, Dry, Intact Wound/Incisions: Reports: Healing Well Neurological: Reports: No New Focal Deficit Psy/Mental Status: Reports: Alert, Normal Affect, Normal Mood
== END 2020-01-13 12:15 | disposition home or self-care (01) | DRG 336 ==
LOC: JP.DI 14:54 → JP.MS 16:27
PROVIDERS: ADMIT Internal Medicine; ATTEND Internal Medicine
PROC: 0DN80ZZ Release Small Intestine, Open Approach (ICD-10-PCS; principal; 2020-01-07)
PROC: 0DQV0ZZ Repair Mesentery, Open Approach (ICD-10-PCS; 2020-01-07)
DX: K56.50 Intestinal adhesions [bands], unspecified as to partial versus complete obstruction (principal); E87.0 Hyperosmolality and hypernatremia; C61 Malignant neoplasm of prostate; H54.7 Unspecified visual loss; K21.9 Gastro-esophageal reflux disease without esophagitis; E87.6 Hypokalemia; Z20.828 Contact with and (suspected) exposure to other viral communicable diseases; R00.0 Tachycardia, unspecified; I48.91 Unspecified atrial fibrillation; Z79.899 Other long term (current) drug therapy
CPT/HCPCS: 36415; 51702; 71046; 71046-26; 74019; 74019-26; 74177; 74177-26; 76775-26; 76775-50; 80048; 80053; 82962; 83735; 84100; 84132; 84478; 85025; 87046; 87899; 94762; 97110-GP; 97162-GP; 97530-GP; 97535-GP; A9270-GY; C1751; C1765; J0171; J0330; J0690; J1100; J1160; J1170; J1200; J1642; J1650; J1940; J2405; J2704; J2710; J2795; J3010; J3480; J3490; J7050; J7060; Q9967; U0002